=== PATIENT | female | born 1935 | race Caucasian/White ===

== ENCOUNTER → 2018-01-12 09:52 | Outpatient (CLI) | payer MEDICARE, SELFPAY ==
--- NOTE | 2018-01-12 09:56 | MM_ITS ---
MM Dig screening mamm BI w/CAD CAD Screening ORDERING PHYSICIAN : Lon Ferreira MD PATIENT AGE: 82 years GENDER: Female COMPARISON: Previous mammograms: December 2016, December 2015, 2014. INDICATION: Routine screening. No hormones. No new complaints. Family history. Maternal aunt with breast cancer age 50s TECHNIQUE: Standard CC and MLO images were obtained. R2 CAD reviewed. FINDINGS: Moderate density breast bilaterally with no dominant mass or suspicious calcifications either breast . No new areas of concern. Stable vascular calcifications. Bilateral follow-up one year recommended. . IMPRESSION: Stable bilateral mammogram.. No new areas of concern BI-RADS Category: 1 Negative RECOMMENDED FOLLOW-UP: 1YR - 1 YEAR FOLLOW-UP (A letter has been sent to the patient regarding results of the study.)
== END ==
PROVIDERS: Family Provider Emergency Medicine; PCP Emergency Medicine; Visit Provider Emergency Medicine
DX: Z12.31 Encounter for screening mammogram for malignant neoplasm of breast (principal)
CPT/HCPCS: 77067

== ENCOUNTER → 2018-12-01 18:14 | Outpatient (CLI) | payer MEDICARE, SELFPAY | PROVIDERS: Visit Provider Nurse Practitioner Family | DX: R35.0 Frequency of micturition (principal) | CPT/HCPCS: 87086 ==

== ENCOUNTER → 2018-12-09 13:49 | Outpatient (CLI) | payer MEDICARE, SELFPAY ==
--- NOTE | 2018-12-09 13:52 | US_ITS ---
US urinary bladder CLINICAL INDICATION: ITS.REASON: urinary frequency ORDERING PHYSICIAN: Ara Wilson PATIENT AGE: 83 years Comparison: None FINDINGS: Urinary bladder has an unremarkable appearance. Bilateral ureteral jets are noted. Full bladder volume is 188 mL. Post void volume is approximate 6 mL's. No obvious mass evident IMPRESSION: 1. The full urinary bladder volume is somewhat lower than expected at 188 mL with normal expected to be between 300 and 400 mL. There is only minimal amount of posterior residual urine 2. No bladder mass evident.
== END ==
PROVIDERS: PCP Nurse Practitioner Family; Visit Provider Nurse Practitioner Family
DX: R35.0 Frequency of micturition (principal)
CPT/HCPCS: 76857

== ENCOUNTER → 2019-01-13 10:53 | Outpatient (CLI) | payer MEDICARE, SELFPAY ==
--- NOTE | 2019-01-13 10:55 | MM_ITS ---
MM Dig screening mamm BI w/CAD CAD Screening COMPARISON: Digital mammograms with CAD 01/12/2018 and 01/09/2017 INDICATION: There is a history of breast cancer patient maternal aunt diagnosed at age 50. TECHNIQUE: Standard CC and MLO images were obtained. R2 CAD reviewed. FINDINGS: Mild to moderate scattered fibroglandular densities are seen throughout both breasts. A small marker right breast. There is minimal arterial calcification in each breast as noted previously. There is a mole marker right breast. There is no suspicious lesion and there are no suspicious microcalcifications. IMPRESSION: Fibrofatty parenchyma with no suspicious lesion seen BI-RADS Category: 2 Benign Finding(s) RECOMMENDED FOLLOW-UP: 1YR - 1 YEAR FOLLOW-UP (A letter has been sent to the patient regarding results of the study.)
== END ==
PROVIDERS: PCP Emergency Medicine; Visit Provider Emergency Medicine
DX: Z12.31 Encounter for screening mammogram for malignant neoplasm of breast (principal)
CPT/HCPCS: 77067

== ENCOUNTER → 2020-04-18 10:55 | Outpatient (CLI) | payer MEDICARE, SELFPAY ==
--- NOTE | 2020-04-18 10:59 | MM_ITS ---
PROCEDURE: MM DIG SCREENING MAMM BI W/CAD DIGITAL BREAST TOMOSYNTHESIS INCLUDED Patient Age:84Y CLINICAL INDICATION: SCREENING no hormones, no new complaints. Family history: Maternal aunt with breast cancer COMPARISON: [facility] DIGITAL MAMM-SCREEN BILATERAL from 12/27/2010 [facility] DIGITAL MAMM-SCREEN BILATERAL from 01/03/2012 [facility] DIGITAL MAMM-SCREEN BILATERAL from 12/25/2012 [facility] DIG MAMM-SCREEN TIERNEY from 12/30/2013 [facility] DIG MAMM-SCREEN TIERNEY from 01/02/2015 [facility] DIG MAMM-SCREEN TIERNEY from 01/08/2016 [facility] DIG MAMM-SCREEN TIERNEY W/CAD from 01/09/2017 [facility] MM Dig screening mamm BI w/CAD from 01/12/2018 [facility] MM Dig screening mamm BI w/CAD from 01/13/2019 TECHNIQUE: Standard CC and MLO images were obtained. R2 CAD reviewed. Bilateral digital breast tomosynthesis included. FINDINGS: [id number] residual fibroglandular elements both breast but no dominant or suspicious mass but no suspicious calcifications but minimal vascular calcifications bilateral Right breast. Stable no new areas of concern Left breast:. No dominant or suspicious mass . A small focal asymmetric the the the the density is deep superior left breast on MLO appears small stable focus of fibroglandular tissue. Appears to been present 2015 and even 2010 MLO views thus can be followed safely. I would recommend and encourage bilateral follow-up one year for ongoing evaluation,. Even in view of patient's age IMPRESSION: .. No new areas of significant concern. . Stable mammogram with stable minor asymmetry. . Longstanding stable tiny area of focal density superior left breast Bilateral follow-up 1 year recommended and should be encouraged to further confirm stability BI-RAD Category: 2 Benign Finding(s) FOLLOW-UP: 1YR 1 Year Follow-up (A letter has been sent to the patient regarding results of the study.) Dictated by: Roberto Carlos Russell MD 04/25/2020 11:22 Electronically signed by Roberto Carlos Russell MD in [place] 04/25/2020 11:22
== END ==
PROVIDERS: PCP Emergency Medicine; Visit Provider Family Medicine
DX: Z12.31 Encounter for screening mammogram for malignant neoplasm of breast (principal)
CPT/HCPCS: 77063; 77067

== ENCOUNTER → 2021-04-19 10:16 | Outpatient (CLI) | payer MEDICARE, SELFPAY ==
--- NOTE | 2021-04-19 10:17 | MM_ITS ---
PROCEDURE INFORMATION: Exam: MG Screening 3D Mammography Exam date and time: 04/19/2021 10:17 AM Age: 85 years old Clinical indication: Encounter for screening mammogram for malignant neoplasm of breast. Family history of breast carcinoma TECHNIQUE: Imaging protocol: Screening tomosynthesis and 2D mammography including computer-aided detection (CAD) when performed. COMPARISON: 1. MG MM DIG SCREENING MAMM BI W/CAD 04/18/2020 11:14 AM 2. MG [facility] MM Dig screening mamm BI w/CAD 01/13/2019 11:10 AM 3. MG [facility] MM Dig screening mamm BI w/CAD 01/12/2018 10:17 AM FINDINGS: MAMMOGRAPHY: Breast composition: The breasts are heterogeneously dense, which may obscure small masses. Mass: No new suspicious masses. Architectural distortion: No suspicious distortion. Calcifications: No suspicious calcifications. Asymmetric density: None. Skin thickening: None. Axillary adenopathy: None. IMPRESSION: No mammographic evidence of malignancy. Annual screening is recommended unless otherwise clinically indicated. ASSESSMENT: BI-RADS Category 1: Negative
== END ==
PROVIDERS: PCP Emergency Medicine; Visit Provider Emergency Medicine
DX: Z12.31 Encounter for screening mammogram for malignant neoplasm of breast (principal)
CPT/HCPCS: 77063; 77067

== ENCOUNTER → 2021-04-25 09:13 | Outpatient (CLI) | payer MEDICARE, SELFPAY ==
[2021-04-25 10:23] LABS: Chloride 100 mmol/L (98-107); Sodium 135 mmol/L (136-145)
[2021-04-25 10:24] LABS: Potassium 4.7 mmoL/L (3.5-5.1)
[2021-04-25 10:26] LABS: Alanine Aminotransferase 20 U/L (12-78); Albumin Level 4.5 g/dl (3.5-5.0); Albumin/Globulin Ratio 1.8 (1.1-1.8); Alkaline Phosphatase 91 U/L (38-126); Anion Gap 13.7 mEq/L (5-15); Aspartate Amino Transferase 30 U/L (14-36); Bilirubin,Total 0.7 mg/dl (0.2-1.3); Blood Urea Nitrogen 14 mg/dl (7-17); Carbon Dioxide 26 mmol/L (22.0-30.0); Cholesterol 210 mg/dl (140-200); Estimated Glomerular Filt Rate 95 ml/min (>60); GFR (African American) 115 ML/MIN (>60); Globulin 2.5 g/dL (1.3-3.2); Triglycerides 64 mg/dl (30-150); VLDL Cholesterol 13 mg/dL (0-40)
[2021-04-25 10:27] LABS: Calcium 9.6 mg/dl (8.4-10.2); Chol/HDL Ratio 2.8 (1-3.5); Glucose 96 mg/dl (74-100); HDL Cholesterol 74 mg/dl (40-60)
[2021-04-25 10:37] LABS: Direct LDL Cholesterol 111.48 mg/dL (100-129)
[2021-04-25 10:56] LABS: Thyroid Stimulating Hormone 3.52 uIU/mL (0.465-4.68)
== END ==
PROVIDERS: Visit Provider Family Medicine
DX: E78.00 Pure hypercholesterolemia, unspecified (principal)
CPT/HCPCS: 36415; 80053; 80061; 84443

== ENCOUNTER → 2022-05-08 10:17 | Outpatient (CLI) | payer MEDICARE, SELFPAY ==
--- NOTE | 2022-05-08 10:21 | MM_ITS ---
PROCEDURE INFORMATION: Exam: MG Bilateral Screening 3D Mammography Exam date and time: 05/08/2022 10:14 AM Age: 86 years old Clinical indication: Screening examination TECHNIQUE: Imaging protocol: Bilateral Screening tomosynthesis and 2D mammography including computer-aided detection (CAD) when performed. COMPARISON: 1. MG MM DIG SCREENING MAMM BI W/CAD 04/19/2021 10:26 AM 2. MG MM DIG SCREENING MAMM BI W/CAD 04/18/2020 11:14 AM FINDINGS: MAMMOGRAPHY: Breast composition: There are scattered areas of fibroglandular density. Mass: None. Architectural distortion: None. Calcifications: No suspicious calcifications. Asymmetric density: None. Skin thickening: None. Axillary adenopathy: None. IMPRESSION: No mammographic evidence of malignancy. Annual screening is recommended unless otherwise clinically indicated. ASSESSMENT: BI-RADS Category 1: Negative
== END ==
PROVIDERS: PCP Emergency Medicine; Visit Provider Family Medicine
DX: Z12.31 Encounter for screening mammogram for malignant neoplasm of breast (principal)
CPT/HCPCS: 77063; 77067

== ENCOUNTER → 2023-02-27 15:51 | Outpatient (CLI) | payer MEDICARE, SELFPAY ==
--- NOTE | 2023-02-27 16:04 | XR_ITS ---
FINAL REPORT CLINICAL HISTORY: RT KNEE PAIN FINDINGS: Right knee Three views were obtained. There is no acute fracture or dislocation. There is chondrocalcinosis at the medial and lateral compartment joint spaces. There is mild narrowing of the medial compartment joint space. Tiny osteophytes are seen along the undersurface of the patella. IMPRESSION: Changes of osteoarthritis as detailed above.. Reviewed, Interpreted and Dictated by Alec Coffman MD Transcribed by Dilcia Graham Authenticated and [facility]
== END ==
PROVIDERS: PCP Family Medicine; Visit Provider Family Medicine
DX: M25.561 Pain in right knee (principal)
CPT/HCPCS: 73562

== ENCOUNTER 2023-04-03 13:22 | Outpatient (RCR) | payer MEDICARE, SELFPAY ==
--- NOTE | 2023-04-03 14:14 | HMH.PTOPEV ---
PT Outpatient Evaluation Rehab PT Outpatient Evaluation Start: 04/03/23 14:05 Freq: Status: Active Protocol: Document 04/03/23 14:07 RUTH (Rec: 04/03/23 14:14 RUTH [id number]) E-signed By Surendra Hannah, PT Outpatient Therapy Subjective History Subjective History Pt reports insidious onset right knee pain beginning around the first of February 2023. Pt reports medial aspect/joint line locailzed right knee pain, which limited activity level until 'steroid shot' ~2 weeks ago. Pt reports 90-95% improvement in right knee pain and function since injection. Chief Complaint Pain,Stiff,Swelling,Weakness Symptom Type Ache,Dull Symptoms Relieved By Rest/Positioning Symptoms Aggravated By Standing,Physical Activity, Walking Prior Functional Limitations None Current Functional Limitations Housework,Walking,Stairs Symptom Description Intermittent Level of pain today (0-10) 0 Pain scale - at its best (0-10) 0 Pain scale - at its worst (0-10) 2 Hip/Knee Eval Gait Observation General Gait Pattern Observation No Deviations/Normal Assistive Device Assistive Devices None / NA Palpation Tenderness right Knee Palpation Finding Tenderness Knee Palpation Overall Comment 0-1/4 medial jt line MMT Hip Flexion Strength Grade 4 Good Hip Abduction Strength Grade 4- Good- Hip Adduction Strength Grade 5 Normal Hip Extension Strength Grade 4 Good Hip External Rotation Strength Grade 4 Good Hip Internal Rotation Strength Grade 4 Good Knee Extension Strength Grade 5 Normal Knee Flexion Strength Grade 4 Good ROM Knee Flexion Active Range of Motion ( 0-130 degrees) Effusion joint effusion knee exam standard right Mid - Patellar Circumerential Measure ( 36 cm) Outpatient Therapy Assessment Impairments Problems/Impairmments Palpation Tenderness,Impaired Strength,Impaired Gait Pattern ,Impaired Walking,Impaired Standing,Impaired Household Care,Impaired Stair Climbing, Subjective C/O Pain,Impaired Self Care/Self Management Prognosis Rehab Potential Good Clinical Impression Consistent with Diagnosis Yes Short Term Goals Number of Weeks 3-5wks Decreased Palpation Tenderness Yes: WFL R KNEE I
== END 2023-04-03 13:25 | disposition home or self-care (01) ==
LOC: PT 13:22
PROVIDERS: PCP Family Medicine; Visit Provider Orthopaedic Surgery
DX: M25.561 Pain in right knee (principal)
CPT/HCPCS: 97163

== ENCOUNTER → 2023-05-09 11:00 | Outpatient (CLI) | payer MEDICARE, SELFPAY ==
--- NOTE | 2023-05-09 11:04 | MM_ITS ---
PROCEDURE INFORMATION: Exam: MG Bilateral Screening 3D Mammography Exam date and time: 05/09/2023 11:01 AM Age: 87 years old Clinical indication: Screening examination; Family history of breast cancer in aunt TECHNIQUE: Imaging protocol: Bilateral Screening tomosynthesis and 2D mammography including computer-aided detection (CAD) when performed. COMPARISON: 1. MG MM DIG SCREENING MAMM BI W/CAD 05/08/2022 10:14 AM 2. MG MM DIG SCREENING MAMM BI W/CAD 04/19/2021 10:26 AM FINDINGS: MAMMOGRAPHY: Breast composition: There are scattered areas of fibroglandular density. Mass: None. Architectural distortion: None. Calcifications: No suspicious calcifications. Asymmetric density: None. Skin thickening: None. Axillary adenopathy: None. IMPRESSION: No mammographic evidence of malignancy. Annual screening is recommended unless otherwise clinically indicated. ASSESSMENT: BI-RADS Category 1: Negative
== END ==
PROVIDERS: PCP Family Medicine; Visit Provider Family Medicine
DX: Z12.31 Encounter for screening mammogram for malignant neoplasm of breast (principal)
CPT/HCPCS: 77063; 77067

== ENCOUNTER → 2023-06-27 10:07 | Outpatient (CLI) | payer MEDICARE, SELFPAY ==
--- NOTE | 2023-06-27 10:09 | CA_ITS ---
APPROVED REPORT EXAM: Comprehensive 2D, Doppler, and color-flow Echocardiogram Geospatial Scientist: Dahlia Henderson RVT Ht: 5 ft 3 in Wt: 124lbs BSA: 1.58 BP: 155/84 mmHg Indications: MURMUR 2D Dimensions LVOT 1.98 cm (M/F) 1.5-2.5 LA Volume 60.60 mL LA Volume Index 38.35 mL/m2 (M/F) 16-34 M-Mode Dimensions RVDd 2.04 cm (0.9-2.6) LA Diam 4.52 cm (1.9-4.0) LVDd 5.04 cm (3.5-5.7) Ao Diam 2.70 cm (2.0-3.7) LVDs 3.35 cm (3.5-5.7) IVSd 0.31 cm (0.6-1.1) PWd 0.38 cm (0.6-1.1) EF (Teich) 62.00% FS 33.50% EDV (Teich) 120.50 mL TAPSE 2.99 (<1.7) ESV (Teich) 45.80 mL LV Diastology E Decel Time 163.00 (160-240 msec) E/A Ratio 0.9 MED E' 5.60 (< 7 cm/sec) E'/MED E' Ratio 17.41 (>14) LAT E' 7.50 (<10 cm/sec) E/LAT E' Ratio 13.00 (>14) Aortic Valve AI PHT 1366.00 ms AO Peak GR. 9.40 mmHg Mitral Valve MV E Max John. 98.00 (40-130 cm/s) MV A Velocity 105.00 (40-130 cm/s) E/A Ratio 0.93 MV Decel. Time 163.00 (160-240 ms) MV PHT 48.00 ms Pulmonary Valve PV Peak Velocity 83.00 (50-150 cm/s) Tricuspid Valve TR P. Velocity 269.00 cm/s RAP Estimate 10.00 mmHg RVSP 38.90 mmHg Left Ventricle The left ventricle is normal size. The left ventricular systolic function is normal. The left ventricular ejection fraction is within the normal range. Proximal septal thickening is present. There is no evidence of LVOT obstruction at rest. There is normal LV segmental wall motion. There is grade II diastolic dysfunction. LVEF is 50-55%. Right Ventricle Right ventricle is mildly dilated. The right ventricular systolic function is normal. Atria Left atrium is moderately dilated. Right atrium is moderately dilated. There is no Doppler evidence of interatrial shunt. Aortic Valve The aortic valve is mildly thickened There is no aortic valvular stenosis. Mild aortic regurgitation. Mitral Valve There is mild prolapse of the posterior MV leaflet. No evidence of mitral valve stenosis. Mild mitral regurgitation. The MR jet is anteriorly directed. Tricuspid Valve The tricuspid valve leaflets are thin and pliable. Mild tricuspid regurgitation. RVSP is 30-35 mmHg. Pulmonic Valve The pulmonary valve is normal in structure. Trace pulmonic regurgitation. Great Vessels The aortic root is normal in size. The ascending aorta is not well visualized. The IVC is dilated and collapses < 50% with respirophasic variation. Pericardium There is no pericardial effusion. Other Information Study Quality: Adequate Conclusion Normal LV size with normal LV systolic function. Mild RV dilation Biatrial enlargement Mild posterior MV leaflet prolapse with mild MR Mild AI Mild TR RVSP is 30-35 mmHg. Electronically signed by : Lizzy Rosa, 06/30/2023 15:32:09
== END ==
PROVIDERS: PCP Family Medicine; Visit Provider Family Medicine
DX: R01.1 Cardiac murmur, unspecified (principal)
CPT/HCPCS: 93306

== ENCOUNTER 2023-07-17 14:00 | Outpatient (RCR) | payer MEDICARE, SELFPAY ==
--- NOTE | 2023-06-18 15:57 | HMH.PTOPWND ---
Rehab Outpt Wound Evaluation Rehab OP Wound Evaluation Start: 06/18/23 15:44 Freq: Status: Active Protocol: Document 06/18/23 15:44 TRANG (Rec: 06/18/23 15:57 PHOSILVINA [id number]) E-signed By Craig Ramos, PT Subjective/History History History This is the initial PT eval for Virginia Amos, 87 yowf who presents with c/o B LE edema, worse on the R side, x ~ 3 mos. She reports she was recently diagnosed with arthritis in her R knee and had more difficulty walking than normal due to pain. She has less pain now after gel injection in the R knee, but has not increased her ambulation distance much out of fear to return to her previously painful state. She reports mild edema in B LE for several years due to varicose veins. She reports no significant PMH other than the OA. Subjective Subjective Currently pain is 0/10, at worst 7/10 in the R knee. 1+ pitting edema noted to B lower legs at this time. No erythema noted, but mild dryness of the skin is present . 0/4 TTP noted to B lower legs this date. 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 Pain Scale Pain Scale (0-10) 7 Affected Extremities Areas Affected by Lymphedema/Edema Right Lower Extremity,Left Lower Extremity Manual Lymphatic Drainage Treatment Area MLD Treatment Area Right Lower Extremity,Left Lower Extremity Wound Problems/Impairments Impairments Problems/Impairmments Impaired Endurance,Impaired Walking,Impaired Stair Climbing,Impaired Incline Stepping,Impaired Stepping on Uneven Surface,Impaired Recreational Activities, Increased Edema,Lymphedema Present,Subjective C/O Pain, Impaired Self Care/Self Management Prognosis Rehab Potential Good Clinical Impression Consistent with Diagnosis Yes Short Term Goals Number of Weeks 2 Increase Ability to Walk Yes: > 15 min without inc edema Decrease Edema Yes: no pitting edema Decrease Subjective C/O Pain Yes: 5/10 R knee Patient to Understand Lymphedema Yes Treatment and Exercises Decrease Girth Measurments by (cm) Yes: B LE total by 5 cm ea Ged Tutor Goals Number of Weeks 4 Increase Ability to Walk Yes: > 30 min without inc edema Decrease Lymphedema Yes: No fibrotic edema Decrease Subjective C/O Pain Yes: 01/03 R knee Patient to be Ind w/ HEP Yes Patient to be Ind w/ [place] Yes Compression Garments Patient to Adhere Lymphedema Precautions Yes Decrease Girth Measurments by (cm) Yes: B LE total by 15 cm ea Outpatient Therapy Plan of Care Treatment Plan May Include Therapeutic Exercise Including Home Yes Exercise Program Manual Therapy Techniques Yes Neuromuscular Re-education Yes Therapeutic Activities to Return to Yes Previous Functional/Work Level ADL/Self Care Education Yes Orthotics/Bracing/Splinting Yes Manual Lymphatic Drainage Yes Eval/Re-Eval Yes Frequency Times per week 2 Duration Number of Weeks 4 Addendums This patient is a candidate for social No or vocational rehab? Patient/Guardian verbally acknowledges Yes understanding of treatment program and consents to further treatment? Patient/Guardian verbally acknowledges Yes understanding of diagnosis, prognosis and goals for treatment? G -code Required No Eval Complexity PT Charges 86672 - High Complexity PHYSICIAN CERTIFICATION: I certify the specified therapy services for Virginia Amos are required, authorized, and reviewed every 30 days.
== END 2023-07-17 15:10 | disposition home or self-care (01) ==
LOC: PT 14:00
PROVIDERS: PCP Family Medicine; Visit Provider Orthopaedic Surgery
DX: I89.0 Lymphedema, not elsewhere classified (principal)
CPT/HCPCS: 97140; 97163

== ENCOUNTER 2024-05-11 10:53 | Outpatient (CLI) | payer MEDICARE, SELFPAY ==
--- NOTE | 2024-05-11 10:56 | MM_ITS ---
PROCEDURE INFORMATION: Exam: MG Bilateral Screening 3D Mammography Exam date and time: 05/11/2024 10:42 AM Age: 88 years old Clinical indication: Screening examination TECHNIQUE: Imaging protocol: Bilateral Screening tomosynthesis and 2D mammography including computer-aided detection (CAD) when performed. COMPARISON: 1. MG MM DIG SCREENING MAMM BI W/CAD 05/09/2023 11:01 AM 2. MG MM DIG SCREENING MAMM BI W/CAD 05/08/2022 10:14 AM 3. MG MM DIG SCREENING MAMM BI W/CAD 04/19/2021 10:26 AM 4. MG MM DIG SCREENING MAMM BI W/CAD 04/18/2020 11:14 AM FINDINGS: MAMMOGRAPHY: Breast composition: There are scattered areas of fibroglandular density. Mass: None. Architectural distortion: No new or suspicious architectural distortion. Calcifications: No new or suspicious calcifications are present Asymmetric density: No new or suspicious asymmetric density is present Skin thickening: None. Axillary adenopathy: None. IMPRESSION: No mammographic evidence of malignancy. Recommend annual screening mammography unless otherwise clinically indicated. ASSESSMENT: BI-RADS category 1: Negative.
== END 2024-05-11 23:59 | disposition home or self-care (01) ==
LOC: RAD 10:53
PROVIDERS: PCP Family Medicine; Visit Provider Family Medicine
DX: Z12.31 Encounter for screening mammogram for malignant neoplasm of breast (principal)
CPT/HCPCS: 77063; 77067

== ENCOUNTER 2025-04-21 12:07 | Outpatient (CLI) | payer MEDICARE, SELFPAY ==
--- OUTSIDE RECORDS SUMMARY | 2025-04-21 12:09 | XMS_ITS | Clinical Summary ---
Author Organization Healthcare Address [address] [place] [address] Care Team Providers Care Stadium Manager Name Role Phone Seth Dawn MD Primary Care Provider + [phone] Social History Tobacco Use Types Packs/Day Years Used Date Smoking Tobacco: Never Assessed Comments Unknown Sex and Gender Information Value Date Recorded Sex Assigned at Not on file Legal Sex Female 6:55 PM EDT Gender Identity Not on file Sexual Orientation Not on file Plan of Treatment Upcoming Encounters Date Type Department Care Team ([facility] st Contact Info) Description 07/14/2025 11:00 AM EDT Ovarian Cancer Screening [facility] Gynecology [address] [place] [phone] Health Maintenance Due Date Last Done Comments [facility]-Bone Density Scan 1935 [facility]-Depression Screening 1935 [facility]-Medicare Annual Wellness (AWV) 1935 [facility]-Infant/Child/Adol SDOH Screenings 1935 [facility]- SDOH Screenings 1953 [facility]-Adult SDOH Screenings 1953 [facility]-Pneumococcal Vaccine: 50+ Years (1 of 1 - PCV) 1985 [facility]-Zoster Vaccines (1 of 2) 1985 [facility]-DTaP,Tdap,and Td Vaccines (1 - Tdap) 12/30/1996 12/29/1996 [facility]-RSV Vaccine: 60+ Years or (1 - 1-dose 75+ series) 2010 [id number] Vaccine (1 - season) 2024 [facility]-Influenza Vaccine (Season Ended) 2025 08/10/2019, 08/22/2017, 08/21/2017 HPV Vaccines Aged Out No longer eligi ble based on patient's age to complete this topic [facility]-HIB Vaccines Aged Out No longer e ligible based on patient's age to complete this topic [facility]-Hepatitis A Vaccines Aged Out No longer eligible based on patient's age to complete this topic [facility]-IPV Vaccines Aged Out No longer e ligible based on patient's age to complete this topic [facility]-Rotavirus Vaccines Aged Out No lo nger eligible based on patient's age to complete this topic Insurance [address] [facility] [facility] Care Teams Stadium Manager Relationship Specialty Start Date End Date Seth Dawn MD [address] [facility] [address] [place] [id number] PCP - General 07/04/21
[2025-04-21 12:10] LABS: Adenovirus F 40/41, stool Not Detected (NotDetected); Astrovirus Not Detected (NotDetected); Campylobacter Not Detected (NotDetected); Clostridium Difficile A/B, PCR Not Detected (NotDetected); Cryptosporidium Not Detected (NotDetected); Cyclospora Cayetanesis Not Detected (NotDetected); Entamoeba histolytica Not Detected (NotDetected); Enteroaggregative E coli Not Detected (NotDetected); Enteropathogenic E coli Not Detected (NotDetected); Enterotoxigenic E coli Not Detected (NotDetected); Giardia lamblia Not Detected (NotDetected); Plesimonas Shigalloides, PCR Not Detected (NotDetected); Rotavirus A Not Detected (NotDetected); Salmonella, PCR Not Detected (NotDetected); Sapovirus Not Detected (NotDetected); Shiga-like toxin E coli Not Detected (NotDetected); Shigella Enterovasive E coli Not Detected (NotDetected); Vibrio Cholerae Not Detected (NotDetected); Vibrio, PCR Not Detected (NotDetected); Yersinia Entercolitica, PCR Not Detected (NotDetected)
[2025-04-21 15:01] LABS: Norovirus Detected (NotDetected)
[2025-04-25 22:08] LABS: Pancreatic Elastase, Fecal 691 (>200)
== END 2025-04-21 23:59 | disposition home or self-care (01) ==
PROVIDERS: PCP Family Medicine; Visit Provider Nurse Practitioner Family
DX: R19.7 Diarrhea, unspecified (principal)
CPT/HCPCS: 82656; 87506

== ENCOUNTER 2025-06-11 10:52 | Emergency (ER) | payer MEDICARE, SELFPAY ==
[2025-06-11] VITALS (10 sets, daily range): BP systolic 136–186; BP diastolic 62–96; PULSE 63–92; RESP 11–18; TEMP 36.6–36.8; O2SAT 80–99; BMI 19.8
--- OUTSIDE RECORDS SUMMARY | 2025-06-11 11:03 | XMS_ITS ---
Author Organization Unknown TREATMENT PLAN [facility] Start Date Provider Encounter for Check-up [id number] [facility]
--- OUTSIDE RECORDS SUMMARY | 2025-06-11 11:03 | XMS_ITS | Clinical Summary ---
Author Organization Healthcare Address [address] [place] [address] Care Team Providers Care Manager Of It Name Role Phone Seth Dawn MD Primary Care Provider + [phone] Social History Tobacco Use Types Packs/Day Years Used Date Smoking Tobacco: Never Assessed Comments Unknown Sex and Gender Information Value Date Recorded Sex Assigned at Not on file Legal Sex Female 6:55 PM EDT Gender Identity Not on file Sexual Orientation Not on file Plan of Treatment Upcoming Encounters Date Type Department Care Team ([facility] st Contact Info) Description 07/14/2025 11:00 AM EDT Ovarian Cancer Screening [facility] Gynecology [address] [place] [address] Health Maintenance Due Date Last Done Comments [facility]-Bone Density Scan 1935 [facility]-Depression Screening 1935 [facility]-Medicare Annual Wellness (AWV) 1935 [facility]-/Child/Adol SDOH Screenings 1935 [facility]- SDOH Screenings 1953 [facility]-Adult SDOH Screenings 1953 [facility]-Pneumococcal Vaccine: 50+ Years (1 of 1 - PCV) 1985 [facility]-Zoster Vaccines (1 of 2) 1985 [facility]-DTaP,Tdap,and Td Vaccines (1 - Tdap) 12/30/1996 12/29/1996 [facility]-RSV Vaccine: 60+ Years or (1 - 1-dose 75+ series) 2010 [facility]-[id number]-65 Vaccine (1 - 2023- season) 2024 [facility]-Influenza Vaccine (#1) 06/27/202508/10, 08/22/2017, 08/21/2017 HPV Vaccines Aged Out No [...] age to complete this topic Insurance [address] [employer] [facility]31 Care Teams Manager Of It Relationship Specialty Start Date End Date Seth Dawn MD [address] [facility] [address] [place] [phone] PCP - General 07/04/21
--- NOTE | 2025-06-11 11:12 | ECG_ITS ---
APPROVED REPORT Exam: Resting ECG HR:69 bpm ECG Measurements Heart Rate 69 AXES IN 198 P 104 QRSd 112 QRS -80 QT 417 T 76 QTc 436 Conclusion NSR Left [place] Normal intervals No STEMI Electronically signed by : Tanner Phillip, 06/11/2025 15:45:34
--- NOTE | 2025-06-11 11:25 | CT_ITS ---
PROCEDURE INFORMATION: Exam: CT Abdomen And Pelvis With Contrast Exam date and time: 06/11/2025 12:04 PM Age: 89 years old Clinical indication: Abdominal pain; Localized; Right; Additional info: Right sided abdominal pain TECHNIQUE: Imaging protocol: Computed tomography of the abdomen and pelvis with contrast. Radiation optimization: All CT scans at this facility use at least one of these dose optimization techniques: automated exposure control; mA and/or kV adjustment per patient size (includes targeted exams where dose is matched to clinical indication); or iterative reconstruction. Contrast material: ISOVUE; Contrast volume: 75 ml; Contrast route: IV; COMPARISON: US - BLADDER US urinary bladder 12/09/2018 2:17 PM FINDINGS: Lungs: Mild bibasilar subsegmental atelectasis. Calcified granuloma right lung base. Cardiomegaly. Mild interlobular and intra lobular septal thickening. Liver: Mild periportal edema. No evidence of hepatic cirrhosis. No focal lesion. Gallbladder and biliary ducts: Normal. No calcified stones. No ductal dilation. Pancreas: Normal. No ductal dilation. Spleen: Normal. No splenomegaly. Adrenal glands: Normal. No mass. Kidneys and ureters: Moderate right hydronephrosis and proximal hydroureter secondary to obstructive 5 mm calculus in the mid right ureter. Right kidney is mildly hypoenhancing. No additional renal or ureteral calculi bilaterally. No left-sided obstruction. Stomach and bowel: No bowel obstruction or acute inflammation. Appendix: Appendix is normal. Intraperitoneal space: Unremarkable. No free air. No significant fluid collection. Vasculature: Unremarkable. No abdominal aortic aneurysm. Lymph nodes: Unremarkable. No enlarged lymph nodes. Urinary bladder: Unremarkable as visualized. Reproductive: Left ovarian cyst measuring 2.0 x 2.3 cm axial. No worrisome features. Nonspecific. Many postmenopausal homogeneous cysts are benign. Bones/joints: Moderate to severe degenerative change in the lumbar spine, with grade 1 anterolisthesis at L3-L4 and L4-L5. Chondroid lesion (suspect enchondroma) in the intertrochanteric proximal left femur. Soft tissues: Mild anasarca. No acute soft tissue abnormality. IMPRESSION: 1. Moderate right hydronephrosis and proximal hydroureter secondary to obstructive 5 mm calculus in the mid right ureter. 2. No bowel obstruction or acute inflammation. Findings suggestive of volume overload including mild interstitial pulmonary edema. Trace periportal edema, mild anasarca.
[2025-06-11 11:35] LABS: Hematocrit 39.7 % (37.0-47.0); Hemoglobin 13.1 g/dL (12.2-16.2); Immature Granulocytes % 0.3 %; Mean Corpuscular HGB Conc 33.0 g/dL (31.8-35.4); Mean Corpuscular Hemoglobin 31.3 pg (27.0-31.2); Mean Corpuscular Volume 95.0 fl (81-99); Nucleated Red Blood Cells % 0 %; Platelet Count 491 K/mm3 (142-424); Red Blood Count 4.18 M/mm3 (4.20-5.40); Red Cell Distribution Width-SD 47.8 fL; White Blood Count 9.7 K/mm3 (4.8-10.8)
[2025-06-11] MEDS: ONDANSETRON 4MG/2ML VIAL 4 MG IV (11:36)
[2025-06-11 11:38] LABS: Albumin Level 4.2 g/dl (3.5-5.0); Chloride 104 mmol/L (98-107); Potassium 4.1 mmoL/L (3.5-5.1); Sodium 137 mmol/L (136-145)
[2025-06-11 11:40] LABS: Alanine Aminotransferase 23 U/L (12-78); Aspartate Amino Transferase 37 U/L (14-36); Blood Urea Nitrogen 20 mg/dl (7-17); Creatinine Clearance Estimated 31 mL/min (50-200); Creatinine,Serum 0.70 mg/dl (0.52-1.04); Estimated Glomerular Filt Rate 79 ml/min (>60); GFR (African American) 95 ML/MIN (>60)
[2025-06-11 11:41] LABS: Albumin/Globulin Ratio 1.5 (1.1-1.8); Alkaline Phosphatase 141 U/L (38-126); Anion Gap 8.1 mEq/L (5-15); Bilirubin,Total 0.7 mg/dl (0.2-1.3); Calcium 9.7 mg/dl (8.4-10.2); Carbon Dioxide 29 mmol/L (22.0-30.0); Globulin 2.8 g/dL (1.3-3.2); Glucose 130 mg/dl (74-100); Lipase 74 U/L (23-300); Total Protein,Serum 7.0 g/dl (6.3-8.2)
[2025-06-11 11:47] LABS: Microscopic, Urine URINE MICROSCOPIC (MICROSCOPIC)
[2025-06-11 11:49] LABS: Bilirubin,Urine Negative (Negative); Color,Urine YELLOW (Yellow); Glucose,Urine (UA) Negative (Negative); Ketones,Urine TRACE (Negative); Leukocyte Esterase,Urine Negative (Negative); PH,Urine 6.0 (5.0-8.5); Protein,Urine 1+ (Negative); Specific Gravity, Urine 1.025 (1.005-1.030); Urobilinogen,Urine 0.2 EU/dl (0.2)
[2025-06-11 11:53] LABS: Troponin I < 0.01 ng/ml (0.00-0.034)
[2025-06-11 11:56] LABS: Bacteria,Urine Trace /lpf; Hyaline Casts,Urine OCC #/lpf (0); RBC,Urine 20-50 #/hpf (0-3); Squamous Epithelial Cell,Urine Occasional #/hpf (0-5)
[2025-06-11] MEDS: IOPAMIDOL-370 (76%);100ML BOTTLE 75 ML IV (12:07)
[2025-06-11] MEDS: SODIUM CHLORIDE 0.9% 10ML SYR (RAD ONLY) 10 ML IV (12:07)
[2025-06-11] MEDS: KETOROLAC 30MG/ML VIAL 15 MG IV (12:38)
[2025-06-11] MEDS: ACETAMINOPHEN 500MG TAB 500 MG PO (12:38)
--- NOTE | 2025-06-11 13:03 | HMH.EDGENADL ---
Discharge Plan Disposition Patient Disposition: Home, Self-Care Condition: Good Prescriptions Prescriptions: New ketorolac 10 mg tablet 10 mg PO Q8H 5 Days Qty: 15 0RF tamsulosin 0.4 mg capsule 0.4 mg PO Q24H MDD 0.4 Qty: 14 0RF Rx Instructions: Take daily until passage of the stone No Action cranberry fruit 400 mg capsule 400 mg PO DAILY cholecalciferol (vitamin D3) 1,000 unit capsule 1,000 unit PO DAILY Metamucil 3.4 gram/5.4 gram powder 1 tbsp PO DAILY Rx Instructions: mix into at least 8 oz of water or juice before administering Referrals Follow up/Referrals: Seth Dawn MD [Primary Care Provider, Medical] - See instructions Activity Restrictions/Add. Instructions Additional Instructions/Restrictions: Your CT scan showed a kidney stone. I want you take tamsulosin 0.4 mg once daily until the stone passes. I also want you to take Ketorolac for pain. You may add Tylenol to this medication at home to control pain as well. Do not take Aspirin or Motrin with it. If you develop worsening pain, fevers, or difficulty passing urine please return to the ER. Clinical Impressions Clinical Impression: Ureterolithiasis Instructions Patient Instructions: DI for Acute Abdominal Pain Print Language Print Language: Lao Discharge ED Provider: Tanner Phillip Adult HPI General Chief complaint: Abdominal Pain Stated complaint: right side abd pain Time Seen by Provider: 06/11/25 11:20 Mode of Arrival: Wheelchair Source of Information: Patient Description of Symptoms (Recalled from ER Triage Doc. by RN): severe pain in the right flank that has moved around to her r side and lower abdomen. 10/ when standing. had a BM yesterday. had norovirus 2 weeks ago. sometimes the pain goes under her r ribs. nauseous but no vomiting History of Present Illness HPI narrative: This is a 89-year-old female patient, with past medical history of lymphedema as well as kidney stones, who is presenting to the emergency department today for evaluation of right-sided abdominal pain. Patient states this pain began in her back and then migrated to her abdomen throughout the morning hours. She has not had any urinary frequency, urinary retention, dysuria, or hematuria. Her pain is not postprandial in nature, however it is associated with nausea and vomiting. She has not had any diarrhea, hematochezia, or melena. She denies fevers. She describes this pain as relatively sudden in onset Related Data Home Medications ?Medication ?Instructions ?Recorded ?Confirmed cholecalciferol (vitamin D3) 25 1,000 unit PO DAILY 01/19/19 04/19/25 mcg (1,000 unit) capsule cranberry fruit 400 mg capsule 400 mg PO DAILY 01/19/19 04/19/25 psyllium husk 3.4 gram/5.4 gram 1 tbsp PO DAILY 04/19/25 04/19/25 oral powder (Metamucil) Previous Rx's ?Medication ?Instructions ?Recorded ketorolac 10 mg tablet 10 mg PO Q8H 5 days #15 tabs 06/11/25 tamsulosin 0.4 mg capsule 0.4 mg PO Q24H Kidney stone #14 06/11/25 caps Allergies Allergy/AdvReac Type Severity Reaction Status Date / Time azithromycin (AZITHROMYCIN) Allergy Unknown Hives Verified 06/11/25 11:36 [facility] Disclaimer: The information contained in this section may have been updated after the patient was seen, as this information can be updated by other users. Social History Smoking Status: Never smoker alcohol intake: never substance use type: denies use current occupational status: retired Travel in the last 8 weeks?: None Have you lived/traveled outside US in past 30 days?: No Contact w/someone who lives/traveled outside US past 30 days?: No Exposure to someone with infectious disease in past 14 days?: No Do you have a fever (greater than 100.4 F or 38 C)?: No Have you tested positive for COVID-19?: No Exposed to someone with COVID-19 in past 14 days?: No Do you have a sore throat?: No Do you have a cough?: No Do you have any weakness?: No Do you have any diarrhea?: No Are you experiencing any unusual bleeding?: No Do you have any muscle aches/pain?: No Do you have any abdominal pain?: Yes Are you experiencing loss of taste or smell?: No Other Medical History Have you received the Pneumonia Vaccine: Yes ROS Obtained: Yes Systems reviewed as appropriate & no additional complaints except as documented Physical Exam General General appearance: other (See MDM) Respiratory Respiratory exam: Present other (See MDM) Cardiovascular Cardiovascular exam: Present other (See MDM) Neurological Exam Neurological exam: Present other (See MDM) Medical Decision Making Medical Records Medical records reviewed: Yes I reviewed the patient's medical records. Screening: Per USPSTF and CDC recommendations, given the prevalence of disease in our region, it is our hospital?s policy to screen for HIV and viral Hepatitis for all patients aged 18 and over and those with ongoing risk factors. Giuseppe Inquiry Pt receiving controlled substance: No Giuseppe was queried for this patient: No Vital Signs: 06/11/25 11:03 06/11/25 11:07 06/11/25 11:30 Temperature 98 F Temperature Source Oral Pulse Rate 75 75 Pulse Rate [Left] 92 H Respiratory Rate 18 12 Blood Pressure 186/89 H 148/85 H Blood Pressure [Right Arm] 186/89 H Blood Pressure Mean [Right Arm] 121 Blood Pressure Source Blood Pressure Position 02 Sat by Pulse Oximetry 99 97 97 Oxygen Delivery Method 06/11/25 12:08 06/11/25 12:17 06/11/25 12:30 Temperature Temperature Source Pulse Rate 78 67 66 Pulse Rate [Left] Respiratory Rate 14 11 L Blood Pressure 155/96 H 160/89 H Blood Pressure [Right Arm] Blood Pressure Mean [Right Arm] Blood Pressure Source Blood Pressure Position 02 Sat by Pulse Oximetry 80 L 96 98 Oxygen Delivery Method 06/11/25 13:00 06/11/25 13:53 06/11/25 14:00 Temperature Temperature Source Pulse Rate 64 63 63 Pulse Rate [Left] Respiratory Rate 13 13 11 L Blood Pressure 158/76 H 143/73 H 136/76 Blood Pressure [Right Arm] Blood Pressure Mean [Right Arm] Blood Pressure Source Blood Pressure Position 02 Sat by Pulse Oximetry 93 L 96 96 Oxygen Delivery Method 06/11/25 14:45 Temperature 98.2 F Temperature Source Oral Pulse Rate 64 Pulse Rate [Left] Respiratory Rate 15 Blood Pressure 147/62 H Blood Pressure [Right Arm] Blood Pressure Mean [Right Arm] Blood Pressure Source Automatic Cuff Blood Pressure Position Supine 02 Sat by Pulse Oximetry Oxygen Delivery Method Room Air Lab Data Lab Results 06/11/25 11:15: WBC 9.7, RBC 4.18 L, Hgb 13.1, Hct 39.7, MCV 95.0, MCH 31.3 H, MCHC 33.0, RDW 13.6, Plt Count 491 H, MPV 10.1, Neut % (Auto) 89.9 H, Lymph % (Auto) 6.9 L, [place] % (Auto) 2.2, Eos % (Auto) 0.2, Baso % (Auto) 0.5, Neut # (Auto) 8.8 H, Lymph # (Auto) 0.7, C[place] # (Auto) 0.2, Eos # (Auto) 0.0, Baso # (Auto) 0.1, Sodium 137, Potassium 4.1, Chloride 104, Carbon Dioxide 29, Anion Gap 8.1, BUN 20 H, Creatinine 0.70, Estimated Creat Clear 31, Estimated GFR 79, Est GFR ( Amer) 95, Glucose 130 H, Calcium 9.7, Total Bilirubin 0.7, AST 37 H, ALT 23, Alkaline Phosphatase 141 H, Troponin I < 0.01, Total Protein 7.0, Albumin 4.2, Globulin 2.8, Albumin/Globulin Ratio 1.5, Lipase 74 06/11/25 11:43: Urine Color Yellow, Urine Appearance Clear, Urine pH 6.0, Ur Specific [place] 1.025, Urine Protein 1+ A, Urine Glucose (UA) Negative, Urine Ketones Trace, Urine Blood 3+ A, Urine Nitrate Negative, Urine Bilirubin Negative, Urine Urobilinogen 0.2, Ur Leukocyte Esterase Negative, Urine RBC 20-50, Urine WBC None, Ur Squamous Epith Cells Occasional, Urine Bacteria Trace, Hyaline Casts Occ 06/11/25 11:15 06/11/25 11:15 Orders (Tests/Meds): ED MEDICATIONS Discontinued Medications Generic Name Dose Route Start Last Admin Trade Name Velia PRN Reason Stop Dose Admin Acetaminophen 500 mg 06/11/25 12:29 06/11/25 12:38 Acetaminophen 500mg Tab PO 06/11/25 12:30 500 mg ONCE ONE Administration Iopamidol 75 ml 06/11/25 12:06 06/11/25 12:07 Iopamidol-370 (76%);100ml Bottle IV 06/11/25 12:07 75 ml ONCE ONE Administration Ketorolac Tromethamine 15 mg 06/11/25 12:29 06/11/25 12:38 Ketorolac 30mg/Ml Vial IV 06/11/25 12:30 15 mg ONCE ONE Administration Morphine Sulfate 2 mg 06/11/25 11:26 06/11/25 11:37 Morphine 2mg/Ml Syringe IV 06/11/25 11:27 Not Given ONCE ONE Ondansetron HCl 4 mg 06/11/25 11:26 06/11/25 11:36 Ondansetron 4mg/2ml Vial IV 06/11/25 11:27 4 mg ONCE ONE Administration Sodium Chloride 10 ml 06/11/25 12:06 06/11/25 12:07 Sodium Chloride 0.9% 10ml Syr (Rad Only) IV 07/11/25 12:05 10 ml NEEDED PRN Administration Maintain IV Site ORDERS Category Date Time Status CT abdomen pelvis w con Stat Cat Scan 06/11/25 11:25 Completed CBC w/Auto Diff [Complete Blood Count Auto Diff] Stat Lab 06/11/25 11:15 Completed CMP [Comprehensive Metabolic Panel] Stat Lab 06/11/25 11:15 Completed Lipase Stat Lab 06/11/25 11:15 Completed Troponin I Stat Lab 06/11/25 11:15 Completed Urinalysis and Microscopic Stat Lab 06/11/25 11:43 Completed ECG Data Tracing #1: I reviewed this ECG and interpreted as documented below: EKG personally interpreted by me demonstrates normal sinus rhythm with a rate of 69 bpm, left axis, no TN prolongation, narrow QRS with incomplete right bundle branch block morphology, no QTc prolongation. No ST elevation or depression. No overt signs of ischemia or arrhythmia Medical Decision Narrative: In summary, this is an 89-year-old female patient who is relatively healthy and presenting to the emergency department today for sudden onset right-sided flank pain is radiating into the right side of her abdomen. Comorbidities include a past medical history of kidney stones as well as lymphedema. She is not on any other relevant daily medications. On initial evaluation of the patient the patient was in acute painful distress and appeared very uncomfortable. Regardless, she was hemodynamically stable and neurologically intact and saturating well on room air. On physical examination she does have tenderness along the right flank as well as in the right lower abdomen. There is no obvious rodolfo peritonitis. Mucous membranes appear moist. Heart and lungs are clear to auscultation bilaterally. Differential diagnosis to include pyelonephritis, ureterolithiasis, urinary tract infection, right-sided diverticulitis, colitis, pneumoperitoneum, among others. Her workup was initiated with hematologic labs, as well as an EKG, and a CT scan of the abdomen and pelvis with IV contrast. Labs were personally interpreted by me and demonstrates no actionable abnormalities. She does not have any evidence of leukocytosis. No evidence of anemia. No electrolyte derangements and no evidence of acute kidney injury. Her urinalysis does show 3+ blood but there is no nitrates or leukocyte esterase and she has no white blood cells present. CT scan of the abdomen and pelvis was personally turbid by me and demonstrates right sided ureterolithiasis. Official radiology read was in agreement and further characterize the stone is a 5 mm stone in the distal mid ureter, with upstream hydronephrosis. We did treat the patient's pain with IV Toradol as well as Tylenol. On repeat assessment of the patient she states that her pain had significantly improved and she was feeling much better overall. We reviewed the indications for emergent stone removal, and the patient does not currently have any of these. Her pain is controlled, she is not having intractable pain, she does not have a solitary kidney, and she has no evidence of urinary tract infection currently. She is overall pleased by her workup today and is reassured that this is a kidney stone. We will send her home with a prescription to take Toradol and tamsulosin over the course of the next week. I have given strict return precautions of the event that she does not pass the stone or the event that she develops symptoms consistent with infection or intractable pain/nausea and vomiting. At this time all questions have been answered and all parties are agreeable with the decision to discharge home Critical Care Critical Care Time Critical Care Time: No
== END 2025-06-11 14:48 | disposition home or self-care (01) ==
PROVIDERS: Emergency Provider Student in an Organized Health Care Education/Training Program; PCP Family Medicine
DX: N13.0 Hydronephrosis with ureteropelvic junction obstruction (principal); N13.4 Hydroureter; R10.31 Right lower quadrant pain
CPT/HCPCS: 74177; 80053; 81001; 83690; 84484; 85025; 93005; 96374; 96375; 99285; J1885; J2405; Q9967

== ENCOUNTER 2025-06-13 10:04 | Outpatient (CLI) | payer MEDICARE, SELFPAY ==
--- NOTE | 2025-06-13 10:04 | XR_ITS ---
FINAL REPORT CLINICAL HISTORY: right knee pain prior injection COMPARISON: 02/27/2023 FINDINGS: RIGHT KNEE: There is no acute fracture or dislocation. Moderate degenerative narrowing is present in the medial compartment. Moderate changes of chondrocalcinosis are noted. There is no soft tissue abnormality. IMPRESSION: Degenerative change, with no acute fracture Reviewed, Interpreted and Dictated by Alec Coffman MD Transcribed by Tania Gomez Authenticated and . [facility]
--- OUTSIDE RECORDS SUMMARY | 2025-06-13 10:06 | XMS_ITS | Clinical Summary ---
Author Organization Healthcare Address [address] [place] [address] Care Team Providers Care Learning Services Coordinator Name Role Phone Seth Dawn MD Primary Care Provider + [phone] Social History Tobacco Use Types Packs/Day Years Used Date Smoking Tobacco: Never Assessed Comments Unknown Sex and Gender Information Value Date Recorded Sex Assigned at Not on file Legal Sex Female 6:55 PM EDT Gender Identity Not on file Sexual Orientation Not on file Plan of Treatment Upcoming Encounters Date Type Department Care Team ([facility] st Contact Info) Description 07/14/2025 11:00 AM EDT Ovarian Cancer Screening [facility] Gynecology [address] [place] [address] Health Maintenance Due Date Last Done Comments [...] or (1 - 1-dose 75+ series) 2010 [id number] Vaccine (1 - 2023- season) 2024 UKY-Influenza [...] age to complete this topic Insurance [address] [facility] [facility] Care Teams Learning Services Coordinator Relationship Specialty Start Date End Date Seth Dawn MD [address] [facility] [address] [place] [id number] PCP - General 07/04/21
== END 2025-06-13 23:59 ==
LOC: RAD 10:04
PROVIDERS: Visit Provider Orthopaedic Surgery
DX: M17.11 Unilateral primary osteoarthritis, right knee (principal)
CPT/HCPCS: 73562

== ENCOUNTER 2025-06-21 10:14 | Outpatient (CLI) | payer MEDICARE, SELFPAY ==
--- OUTSIDE RECORDS SUMMARY | 2025-06-21 10:17 | XMS_ITS | Clinical Summary ---
Author Organization Healthcare Address [address] [place] [address] Care Team Providers Care Aircraft Engine Technician Name Role Phone Seth Danw MD Primary Care Provider + [phone] Social History Tobacco Use Types Packs/Day Years Used Date Smoking Tobacco: Never Assessed Comments Unknown Sex and Gender Information Value Date Recorded Sex Assigned at Not on file Legal Sex Female 6:55 PM EDT Gender Identity Not on file Sexual Orientation Not on file Plan of Treatment Upcoming Encounters Date Type Department Care Team ([facility] st Contact Info) Description 07/14/2025 11:00 AM EDT Ovarian Cancer Screening [facility] Gynecology [address] [place] [address] Health Maintenance Due Date Last Done Comments [...] or (1 - 1-dose 75+ series) 2010 [id number] Vaccine (1 - 2023- season) 2024 UKY-Influenza [...] age to complete this topic Insurance [address] [place] [place] [facility] Care Teams Aircraft Engine Technician Relationship Specialty Start Date End Date Seth Dawn MD [address] [facility] [address] [place] [phone] PCP - General 07/04/21
--- NOTE | 2025-06-21 10:18 | XR_ITS ---
FINAL REPORT CLINICAL HISTORY: GROSS HEMATURIA, RT URETERAL STONE COMPARISON: 06/11/2025 FINDINGS: A single supine view the abdomen was obtained. The bowel gas pattern is nonspecific but nonobstructive. The known right ureteral stone is not identified on this exam. The kidneys are obscured. Osseous structures are within normal limits. IMPRESSION: Nonspecific but nonobstructive bowel gas pattern. Reviewed, Interpreted and Dictated by Stefanie Anderson MD Transcribed by Dilcia Graham Authenticated and [facility]
== END 2025-06-21 23:59 | disposition home or self-care (01) ==
LOC: RAD 10:15
PROVIDERS: PCP Family Medicine; Visit Provider Family Medicine
DX: N20.1 Calculus of ureter (principal); R93.3 Abnormal findings on diagnostic imaging of other parts of digestive tract
CPT/HCPCS: 74018

== ENCOUNTER 2025-10-18 23:01 | Emergency (ER) | payer MEDICARE, SELFPAY ==
--- OUTSIDE RECORDS SUMMARY | 2025-05-02 09:45 | XMS_ITS ---
[facility] Address [address] [place] Campos [id number] Care Team Providers Care Community Fundraiser Name Role Phone Seth Dawn Primary Care Provider Allergies Allergen (clinical drug ingredient) Drug/Non Drug Allergy documented on EMR Reaction Allergy Type Onset Date Status azithromycin Azithromycin Unknown Drug Allergy A ctive Results Component Value Reference Range Notes Urinalysis - Inhouse Reviewed date:05/02/2025 05:03:24 PM Interpretation: Performing Lab: Notes/Report: Color/Clarity yellow/cloudy Leuk Neg Nitrite Neg Urobili 3.2 Protein Neg pH 6.5 Blood 3+ Sp. Gr. 1.010 Ketone Neg Bili Neg Gluc Neg P-Culture, Urine Reviewed date:05/09/2025 09:14:03 AM Interpretation:No growth Performing Lab: Notes/Report: Test performed by [facility] [address] [place] [address] , [address], [place] [address] Jd Benavides MD, Labor And Employment Paralegal CLIA: [id number] Specimen Source Urine - Void Culture, Urine See Below Final Report : No growth REASON FOR VISIT Possible UTI Medications Medication SIG (Take, Route, Frequency, Duration) Notes Start Date End Date Status Omeprazole 20 MG 1 cap(s) orally once a day; Duration: 90 days Active Timolol Maleate 5 MG 1 tab(s) orally 2 t imes a day; Duration: 30 day(s) Active oxyBUTYnin Chloride ER 5 MG 1 tab(s) ora lly once a day Active Diclofenac Sodium 1 % 4 grams applied topically 4 times a day 03/03/2023 Active Nitrofurantoin Monohyd Macro 100 MG 1 capsule with food Orally every 12 hrs; Duration: 5 days 05/02/2025 Active Braymer-3 1000 MG 1 cap(s) orally once a day; Duration: 30 day(s) Active Vital Signs Weight 115 lbs 05/02/2025 Blood pressure systolic 144 mm Hg 05/02/20 25 Blood pressure diastolic 80 mm Hg 025 Heart Rate 80 /min 05/02/2025 Height 64 in 05/02/2025 BMI 19.74 kg/m2 05/02/2025 Encounters Encounter Location Date Provider Diagnosis [facility] [address] [place], [place] [id number] 05/02/2025 Seth Dawn Gross hematuria R31. 0 and Body mass index [BMI] 19.9 or less, adult Z68.1 Assessments Encounter Date Diagnosis (ICD Code) Assessment Notes Treatment Notes Treatment Clinical Notes Section Notes 05/02/2025 Gross hematuria (ICD-10 - R31.0) 05/02/2025 Body mass index [BMI] 19.9 or less, adult (ICD-10 - Z68.1) 05/02/2025 Other Patient has lost 4 lbs in the past 20 months. No concern at this time. She will monitor weight and call with any new issues. Plan Of Treatment Medication Medication Name Sig Start Date Stop Date Notes Nitrofurantoin Monohyd Macro 100 MG 1 capsule with food Orally every 12 hrs; Duration: 5 days 05/02/2025 Treatment Notes Assessment Notes Other Patient has lost 4 l bs in the past 20 months. No concern at this time. She will monitor weight and call with any new issues. Progress Notes * MASHA AMOS GDOB: [birth year] (89 yo F)Acc No.[id number]:05/02/2025 Progress Notes Patient: MASHA LABOY Provider: Jayla Dawn M.D. :1935 A ge:89 Y S ex:Female Date:05/02/2025 Address:[address] [place] [id number] Subjective: * Chief Complaints: * 1 . Possible UTI. * HPI: U rology: 89 year old female presents with c/o hematuria P t complains of blood in urine that started Friday evening. Pt states it continued through today. 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 E ndocrinology: c/o Weight Loss P t complains of tremendous weight loss over the last couple months. Pt states she is not trying to lose weight and is concerned. Pt states she is losing about 1 lb per day. * ROS: D ERMATOLOGY: no R esa. n o H geronimo. G ASTROENTEROLOGY: no N ausea. n o V omiting. U ROLOGY: no D ifficulty urinating. n o B lood in urine. * Medical History: G laucoma, Overactive Bladder, Hyperlipidemia, Esophageal reflux, Migraine headache, Lumbar Disc Disease, Lumbar facet arthropathy, Spondylolisthesis. * Surgical History: T onsillectomy , Bladder Suspension , Bladder Cyst Removal , Glaucoma . * Hospitalization/Major Diagno stic Procedure: D enies Past Hospitalization. * Family History: Maternal Aunt and Uncle, Sister, and daughter have had cancer. * Social History: C URRENT TOBACCO USE: No . C affeine: yes, frequency: Pt sts she occasionally drinks caffeine. Alcohol: yes, Pt sts she drinks ocassinally. * Medications: T aking Braymer-3 1000 MG Capsule 1 cap(s) orally once a day , Taking Timolol Maleate 5 MG Tablet 1 tab(s) orally 2 times a day , Taking oxyBUTYnin Chloride ER 5 MG Tablet Extended Release 24 Hour 1 tab(s) orally once a day , Taking Diclofenac Sodium 1 % Gel 4 grams applied topically 4 times a day , Taking Omeprazole 20 MG Capsule Delayed Release 1 cap(s) orally once a day , Discontinued Cefdinir 300 MG Capsule 1 cap(s) Orally Two times a day , Medication List reviewed and reconciled with the patient * Allergies: A zithromycin. Objective: * Vitals: W t: 115, Temp: 98.0, BP: 144/80, HR: 80, Nurse: miguelina, Ht: 64, BMI:19.74. * Examination: G eneral Examination: General Appearance: N AD. H eart: R SR. L ungs:?clear to auscultation. B ack: n o CVA tenderness. Assessment: * Assessment: 1. G ross hematuria - R31.0 (Primary) 2 . B kalyn mass index [BMI] 19.9 or less, adult - Z68.1 Plan: * Treatment: Value Reference Range C ulture, Urine See Below - * S pecimen Source Urine - Void - * Gisselle Logan 05/06/2025 11:12: 59 AM EDT > LM for pt to return Gisselle Lowry 05/09/2025 09:13:53 AM EDT > Pt informed ?LAB: Urinalysis - Inhouse (Collection Date & Time - 05/02/2025)* Value Reference Range C olor/Clarity yellow/cloudy * L euk Neg * N itrite Neg * U robili 3.2 * P rotein Neg * p H 6.5 * B lood 3+ * S p. Gr. 1.010 * K etone Neg * B erendira Neg * G shi Neg * Gisselle Logan 05/02/2025 03:06:0 9 PM EDT > Provider reviewed results while patient in office. 2.?Others? Notes: Patient has lost 4 lbs in the past 20 months. No concern at this time. She will monitor weight and call with any new issues.?? * Procedure Codes: G 2211 Complex e/[place], [address] Urinalysis, no micro, 1036F TOBACCO NON-USER * Images: Billing Information: * Visit Code: 26509 Office Visit, Est Pt., Level 3. * Procedure Codes: G2211 Complex e/[place]. [address] Urinalysis, no micro. 1036F TOBACCO NON-USER. * Electronic signature of Linda Dawn MD on 10/18/2025 at 11:06 PM EST Sign off status: Pending * Provider: Jayla Dawn M.D. Date: 0 05/02/2025 Generated for Chi rosales/Anita/Raymonditting on: 1 12/19/2024 11:06 PM EST History and Physical Notes * HPI (History of Present Illness) Category Sub-Category Detail Notes Category Not es Endocrinology Weight Loss Pt complains of tremendous weight loss over the last couple months. Pt states she is not trying to lose weight and is concerned. Pt states she is losing about 1 lb per day Urology hematuria Pt complains of blood in urine that started Friday evening. Pt states it continued through today. Pt states urine gets simulation software engineer throughout the day Examination Category Sub-Category Detail Notes Category Not es General Examination Heart: RSR Lungs: clear to auscultatio n General Appearance: NAD Back: no CVA tenderness
--- OUTSIDE RECORDS SUMMARY | 2025-06-21 04:00 | XMS_ITS ---
Author [facility] Address [address] [id number] Care Team Providers Care Chemist Intern Name Role Phone López Seth Primary Care Provider [phone] Allergies Allergen (clinical drug ingredient) Drug/Non Drug Allergy documented on EMR Reaction Allergy Type Onset Date Status azithromycin Azithromycin Unknown Drug Allergy A ctive Results Component Value Reference Range Notes Urinalysis - Inhouse Reviewed date:06/21/2025 10:30:46 AM Interpretation: Performing Lab: Notes/Report: Color/Clarity Red Leuk Neg Nitrite Neg Urobili 3.2 Protein 1+ pH 6.5 Blood 3+ Sp. Gr. 1.020 Ketone Neg Bili Neg Gluc Neg CBC Venipuncture (in house) Reviewed date:06/22/2025 08:36:04 AM Interpretation: Performing Lab: Notes/Report: wbc 6.9 3.5 - 10 lymph 14.7% 15 - 50 mid 4.8% 2 - 15 gran 80.5% 35 - 80 rbc 4.20 3.5 - 5.5 hgb 13.1 11.5 - 16.5 hct 39.5 35 - 55 mcv 94.0 75 - 100 mch 31.3 25 - 35 mchc 33.3 31 - 38 platlet 486 100 - 400 P-Comprehensive Metabolic Pa devon (CMP) Reviewed date:06/22/2025 08:36:04 AM Interpretation:Normal Performing Lab: Notes/Report: CLIA: [id number] Jd Benavides MD, Border [employer] Officer [address] [place] [address] , [address], [place] [address] Test performed by [facility], [facility] Sodium 139 135-145 mmol/L Potassium 4.4 3.5-5.3 mmol/L Chloride 102 97-108 mmol/L CO2 27 20-32 mmol/L Glucose 94 65-99 mg/dL BUN 17 8-23 mg/dL Creatinine 0.89 0.50-1.00 mg/dL Calcium 9.9 8.6-10.4 mg/dL eGFR by Creatinine 62 >59 mL/min/1.73m2 Protein 6.4 6.0-8.3 g/dL Albumin 4.0 3.5-5.3 g/dL Alkaline Phosphatase 115 35-121 IU/L ALT (SGPT) 14 <5-47 IU/L AST (SGOT) 19 <5-40 IU/L Bilirubin, Total 0.5 <0.2-1.2 mg/dL A/G Ratio 1.7 1.1-2.5 P-Culture, Urine Reviewed date:06/23/2025 08:51:43 AM Interpretation:No growth Performing Lab: Notes/Report: CLIA: [id number] Jd Benavides MD, [employer] Officer [address] [place] [address] , [address], [place] [address] Test performed by [facility] Specimen Source Urine - Void Culture, Urine See Below Final Report : No growth P-Lipid Panel Reviewed date:06/22/2025 08:36:04 AM Interpretation:Normal Performing Lab: Notes/Report: Test performed by [facility] [address] [place] [address] , [address], [place] [address] Jd Benavides MD, [employer] Officer CLIA: [id number] Cholesterol 189 <200 mg/dL Triglycerides 60 <150 mg/dL HDL Cholesterol 71 >39 mg/dL Cholesterol / HDL Ratio 2.66 0.00-4.44 Ratio Non-HDL Cholesterol 118 <130 mg/dL LDL Cholesterol (Calculation) 106 <130 mg/dL LDL Cholesterol Levels* Less than 100 mg/dL Optimal 100 to 129 mg/dL Near Optimal/ Above Optimal 130 to 159 mg/dL Borderline High 160 to 189 mg/dL High 190 mg/dL and above Very High * Categories as recommended by the 2004 ATPIII guidelines LDL/HDL Ratio 1.5 <3.3 Ratio LDL Cholesterol Patient History Test Date: 06/21/2025 LDL Results: 106 Units: mg/dL % Change: - P-TSH reflex to FT4 Reviewed date:06/22/2025 08:36:04 AM Interpretation:Normal Performing Lab: Notes/Report: Test performed by [facility], [address] , [address], [place] [address] Jd Benavides MD, [employer] Officer CLIA: [id number] TSH reflex to FT4 4.46 0.43-5.25 mU/L X ray : Abdomen- KUB Reviewed date:06/22/2025 08:36:04 AM Interpretation:nonspecific, nonobstructive bowel gas pattern Performing Lab: Notes/Report: nonspecific, nonobstructive bowel gas pattern REASON FOR VISIT blood in urine Medications Medication SIG (Take, Route, Fr equency, Duration) Notes Start Date End Date Status Avastin 400 MG/16ML as directed Intravenous Active [place] Pass-3 1000 MG 1 cap(s) orally once a day; Duration: 30 day(s) Active Tamsulosin HCl 0.4 MG 1 capsule Orally O nce a day; Duration: 30 days Active Vital Signs Weight 112.8 lbs 06/21/2025 Blood pressure systolic 138 mm Hg 06/21/20 25 Blood pressure diastolic 70 mm Hg 025 Heart Rate 74 /min 06/21/2025 Height 64 in 06/21/2025 BMI 19.36 kg/m2 06/21/2025 Encounters Encounter Location Date Provider Diagnosis [facility] [address] [place] [id number] 06/21/2025 Seth [place] Gross hematuria R31. 0 ; Right ureteral stone N20.1 and Pure hypercholesterolemia E78.00 Assessments Encounter Date Diagnosis (ICD Code) Assessment Notes Treatment Notes Treatment Clinical Notes Section Notes 06/21/2025 Gross hematuria (ICD -10 - R31.0) 06/21/2025 Right ureteral stone (ICD-10 - N20.1) 06/21/2025 Pure hypercholesterolemia (ICD-10 - E78.00) Plan Of Treatment Medication Medication Name Sig Start Date Stop Date Notes Tamsulosin HCl 0.4 MG 1 capsule Orally O nce a day; Duration: 30 days Next Appt Details Follow Up: via phone to repo rt test results, Reason: Progress Notes * MASHA MEEHAN GDOB: [birth year] (89 yo F)Acc No.[id number]:06/21/2025 Progress Notes Patient: MASHA LABOY Provider: Jayla Dawn M.D. :1935 A ge:89 Y S ex:Female Date:06/21/2025 Address:[address] [place] [id number] Subjective: * Chief Complaints: * 1 . Blood in urine. * HPI: U rology: 89 year old female presents with c/o hematuria P t complains of blood in urine that started 06/11. Pt did go to er and was dx with kidney stone, see printed docs. * ROS: C ARDIOLOGY: no D izziness. n o C hest pain. D ERMATOLOGY: no R esa. n o H geronimo. G ASTROENTEROLOGY: no N ausea. n o V omiting. * Medical History: G laucoma, Overactive Bladder, Hyperlipidemia, Esophageal reflux, Migraine headache, Lumbar Disc Disease, Lumbar facet arthropathy, Spondylolisthesis, kidney stones, Dx: 2024. * Surgical History: T onsillectomy , Bladder [...] she drinks ocassinally. * Medications: T aking Avastin 400 MG/16ML Solution as directed Intravenous , Taking Tamsulosin HCl 0.4 MG Capsule 1 capsule Orally Once a day , Taking [place] Pass-3 1000 MG Capsule 1 cap(s) orally once a day , Discontinued Timolol Maleate 5 MG Tablet 1 tab(s) orally 2 times a day , Discontinued oxyBUTYnin Chloride ER 5 MG Tablet Extended Release 24 Hour 1 tab(s) orally once a day , Discontinued Diclofenac Sodium 1 % Gel 4 grams applied topically 4 times a day , Discontinued Omeprazole 20 MG Capsule Delayed Release 1 cap(s) orally once a day , Discontinued Nitrofurantoin Monohyd Macro 100 MG Capsule 1 capsule with food Orally every 12 hrs , Medication List reviewed and reconciled with the patient * Allergies: A zithromycin. Objective: * Vitals: W t: 112.8, Temp: 98.1, BP: 138/70, HR: 74, Nurse: MILADIS, Ht: 64, BMI:19.36. * Examination: G eneral Examination: General Appearance: N AD. H eart: R SR. L ungs:?clear to auscultation. A bdomen: b owel sounds present, soft and nontender. P eripheral pulses: n ormal (2+) bilaterally. B ack: n o CVA tenderness. E xtremities:?no leg edema. Assessment: * Assessment: 1. G ross hematuria - R31.0 (Primary) 2 . R ight ureteral stone - N20.1? 3. P ure hypercholesterolemia - E78.00 Plan: * Treatment: Value Reference Range C ulture, Urine See Below - * S pecimen Source Urine - Void - * Rosa Maria Seaman 06/23/2025 08:5 1:39 AM EDT > See phone encounter ?LAB: Urinalysis - Inhouse (Collection Date & Time - 06/21/2025)* Value Reference Range C olor/Clarity Red * L euk Neg * N itrite Neg * U robili 3.2 * P rotein 1+ * p H 6.5 * B lood 3+ * S p. Gr. 1.020 * K etone Neg * B erendira Neg * G shi Neg * Gisselle Logan 06/21/2025 10:08: 51 AM EDT > Provider reviewed results while patient in office. ?LAB: CBC Venipuncture (in house) (Collection Date & Time - 06/21/2025)* Value Reference Range w bc 6.9 3.5 - 10 * l ymph 14.7% 15 - 50 * m id 4.8% 2 - 15 * g ran 80.5% 35 - 80 * r bc 4.20 3.5 - 5.5 * h gb 13.1 11.5 - 16.5 * h ct 39.5 35 - 55 * m cv 94.0 75 - 100 * m ch 31.3 25 - 35 * m chc 33.3 31 - 38 * p latlet 486 100 - 400 * Melonie Alfonso 06/21/2025 10 :36:35 AM EDT > Rosa Maria Seaman 06/22/2025 08:35:56 AM EDT > See phone encounter ?Imaging: X ray : Abdomen- KUB (Performed Date - 06/21/2025)?nonspecific, nonobstructive bowel gas pattern* Rosa Maria Seaman 06/22/2025 08:3 5:56 AM EDT > See phone encounter 2.?Right ureteral stone? Refill Tamsulosin HCl Capsule, 0.4 MG, 1 capsule, Orally, Once a day, 30 days, 30 Capsule, Refills 0.?Imaging: X ray : Abdomen- KUB (Performed Date - 06/21/2025)?nonspecific, nonobstructive bowel gas pattern* Rosa Maria Seaman 06/22/2025 08:3 5:56 AM EDT > See phone encounter 3.?Pure hypercholesterolemia?LAB: P-Comprehensive Metabolic Panel (CMP) (Collection Date & Time - 06/21/2025 08:55 AM)?Normal* Value Reference Range A /G Ratio 1.7 1.1-2.5 - * A lbumin 4.0 3.5-5.3 - g/dL * A lkaline Phosphatase 115 35-121 - IU/L * A LT (SGPT) 14 <5-47 - IU/L * A ST (SGOT) 19 <5-40 - IU/L * B ilirubin, Total 0.5 <0.2-1.2 - mg/dL * B UN 17 8-23 - mg/dL * C alcium 9.9 8.6-10.4 - mg/dL * C hloride 102 97-108 - mmol/L * C O2 27 20-32 - mmol/L * C reatinine 0.89 0.50-1.00 - mg/dL * G lucose 94 65-99 - mg/dL * P otassium 4.4 3.5-5.3 - mmol/L * S odium 139 135-145 - mmol/L * P rotein 6.4 6.0-8.3 - g/dL * e GFR by Creatinine 62 >59 - mL/min/1.73m2 * Rosa Maria Seaman 06/22/2025 08:3 5:56 AM EDT > See phone encounter ?LAB: P-Lipid Panel (Collection Date & Time - 06/21/2025 08:55 AM)?Normal* Value Reference Range C holesterol / HDL Ratio 2.66 0.00-4.44 - Ratio * C holesterol 189 <200 - mg/dL * H DL Cholesterol 71 >39 - mg/dL * L DL Cholesterol (Calculation) 106 <130 - mg/d L * L DL/HDL Ratio 1.5 <3.3 - Ratio * N on-HDL Cholesterol 118 <130 - mg/dL * T riglycerides 60 <150 - mg/dL * Rosa Maria Seaman 06/22/2025 08:3 5:56 AM EDT > See phone encounter ?LAB: P-TSH reflex to FT4 (Collection Date & Time - 06/21/2025 08:55 AM)? Normal* Value Reference Range T SH reflex to FT4 4.46 0.43-5.25 - mU/L * Rosa Maria Seaman 06/22/2025 08:3 5:56 AM EDT > See phone encounter * Procedure Codes: G 2211 Complex e/[place], [address] Urinalysis, no micro, 60582 CBC WITH AUTO DIFF, 1036F TOBACCO NON-USER, G8783 BP SCR PRFRM RCMDD DEFIND SCR INTVL, G8752 MOST RECENT SYSTOLIC BP < 140MM HG, G8754 MOST RECENT DIASTOLIC BP < 90MM HG * Follow Up: v ia phone to report test results * Images: Billing Information: * Visit Code: 32188 Office Visit, Est Pt., Level 4. * Procedure Codes: G2211 Complex e/[place]. [address] Urinalysis, no micro. 40474 CBC WITH AUTO DIFF. 1036F TOBACCO NON-USER. G8783 BP SCR PRFRM RCMDD DEFIND SCR INTVL. G8752 MOST RECENT SYSTOLIC BP < 140MM HG. G8754 MOST RECENT DIASTOLIC BP < 90MM HG. * Electronic signature of Linda Dawn MD on 10/18/2025 at 11:06 PM EST Sign off status: Pending * Provider: Jayla Dawn M.D. Date: 0 06/21/2025 Generated for Chi rosales/Anita/Lesasmitting on: 1 12/19/2024 11:06 PM EST History and Physical Notes * HPI (History of Present Illness) Category Sub-Category Detail Notes Category Not es Urology hematuria Pt complains of blood in urine that started 06/11. Pt did go to er and was dx with kidney stone, see printed docs Examination Category Sub-Category Detail Notes Category Not es General Examination Heart: RSR Lungs: clear to auscultatio n Abdomen: bowel sounds present , soft and nontender Extremities: no leg edema General Appearance: NAD Peripheral pulses: normal (2+) bilatera lly Back: no CVA tenderness
--- NOTE | 2025-10-18 23:01 | CT_ITS ---
PROCEDURE INFORMATION: Exam: CT Cervical Spine Without Contrast Exam date and time: 10/18/2025 11:25 PM Age: 89 years old Clinical indication: Injury or trauma; Fall TECHNIQUE: Imaging protocol: Computed tomography of the cervical spine without contrast. Radiation optimization: All CT scans at this facility use at least one of these dose optimization techniques: automated exposure control; mA and/or kV adjustment per patient size (includes targeted exams where dose is matched to clinical indication); or iterative reconstruction. COMPARISON: CT HEAD/BRAIN WO CON 10/18/2025 11:23 PM FINDINGS: Bones: Minimal anterolisthesis of C4 on C5, C7 on T1, T1 on T2, T2 on T3, and T3 on T4. Minimal dextrocurvature of the cervical spine. The alignment is otherwise maintained. The vertebral body heights are maintained. No evidence of acute fractures. The bones are diffusely osteopenic. 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 There are mild to advanced degenerative changes of the facet joints and the uncovertebral joints, when the same degree of neural foraminal stenoses at multiple levels. Lungs: Mild biapical scarring is noted. Esophagus: Patulous upper esophagus with small amount of debris. Vasculature: There are atherosclerotic calcifications of the carotid bifurcations. There is a 5 mm perhaps cystic lesion in the right aspect of the larynx, (series 3, image 45), which is indeterminate. A nonemergent CT or perhaps better MRI of the neck are recommended for further evaluation. Clinical correlation and ENT consultation are recommended for further evaluation. Soft tissues: Artifacts from the dental amalgam limiting evaluation of the oral cavity. Scattered small cervical lymph nodes are nonspecific. IMPRESSION: 1. No evidence of acute fracture or traumatic malalignment in the cervical spine. 2. There is a 5 mm perhaps cystic lesion in the right aspect of the larynx, (series 3, image 45), which is indeterminate. A nonemergent CT of the neck or perhaps better MRI of the neck are recommended for further evaluation. Clinical correlation and ENT consultation are recommended for further evaluation.
--- NOTE | 2025-10-18 23:01 | XR_ITS ---
PROCEDURE INFORMATION: Exam: XR Chest Exam date and time: 10/18/2025 11:13 PM Age: 89 years old Clinical indication: Injury or trauma; Fall TECHNIQUE: Imaging protocol: Radiologic exam of the chest. Views: 1 view. COMPARISON: CR XR KUB 06/21/2025 10:25 AM FINDINGS: Lungs: There is a calcified granuloma within the right mid to lower lung zone. No consolidation. No mass. Pleural spaces: Unremarkable. No pleural effusion. No pneumothorax. Heart/Mediastinum: Unremarkable. No cardiomegaly. Vasculature: Unremarkable. Bones/joints: There is a scoliosis of the midthoracic spine convex right. There are prominent degenerative changes of both glenohumeral joints. IMPRESSION: No acute findings.
--- NOTE | 2025-10-18 23:01 | XR_ITS ---
PROCEDURE INFORMATION: Exam: XR Left Hip Exam date and time: 10/18/2025 11:13 PM Age: 89 years old Clinical indication: Hip pain; Left hip; Additional info: Fall shortening rotation L hip TECHNIQUE: Imaging protocol: Radiologic exam of the left hip. Views: 2 or 3 views hip with pelvis when performed. COMPARISON: CT ABDOMEN PELVIS W CON 06/11/2025 12:04 PM FINDINGS: Bones/joints: There is a comminuted left intertrochanteric fracture with varus deformity. The femoral head remains seated within the acetabulum. The bony pelvis and proximal left femur are intact. Soft tissues: Unremarkable. IMPRESSION: Comminuted left intratrochanteric fracture with varus deformity.
--- NOTE | 2025-10-18 23:01 | CT_ITS ---
PROCEDURE INFORMATION: Exam: CT Head Without Contrast Exam date and time: 10/18/2025 11:23 PM Age: 89 years old Clinical indication: Injury or trauma; Fall TECHNIQUE: Imaging protocol: Computed tomography of the head without contrast. Radiation optimization: All CT scans at this facility use at least one of these dose optimization techniques: automated exposure control; mA and/or kV adjustment per patient size (includes targeted exams where dose is matched to clinical indication); or iterative reconstruction. COMPARISON: No relevant prior studies available. FINDINGS: Limitations: The images are degraded due to motion artifacts. Artifacts from the dental amalgam are also limiting evaluation of the oral cavity and the posterior fossa. Within these limitations: Brain: No acute intra- or extra axial fluid collections are identified. The basal cisterns are patent. No mass effect or midline shift is seen. The khan-white matter differentiation is normal. Periventricular hypoattenuation are nonspecific but likely the sequela of chronic small vessel ischemic disease. Cerebral ventricles: Mild cerebral volume loss and ex vacuo dilation of the ventricles.. Paranasal sinuses: Minimal mucosal thickening in the ethmoid air cells. The remaining paranasal sinuses appear otherwise grossly clear. Mastoid air cells: The mastoid air cells appear grossly clear. Orbital cavities: The patient is status post cataract extraction.. Bones: No acute calvarial fracture is identified. Soft tissues: No soft tissue abnormalities identified. Vasculature: There are atherosclerotic calcifications of the carotid siphons and perhaps faintly the V4 segments of the vertebral arteries. IMPRESSION: Poor image quality due to motion and beam hardening/streak artifacts. Within these limitations: 1. No evidence of acute intracranial hemorrhage, mass effect, or midline shift. 2. Please note that CT is insensitive to nonhemorrhagic strokes and MRI of the brain should be considered, if there is clinical concern for acute cerebral infarction.
[2025-10-18 23:04] VITALS: BP 142/96; PULSE 82; O2SAT 97
--- NOTE | 2025-10-18 23:07 | HMH.EDGENADL ---
Discharge Plan Disposition Patient Disposition: Xfer Short-Term Hosp Condition: Fair Prescriptions Prescriptions: No Action cranberry fruit 400 mg capsule 400 mg PO DAILY cholecalciferol (vitamin D3) 1,000 unit capsule 1,000 unit PO DAILY Metamucil 3.4 gram/5.4 gram powder 1 tbsp PO DAILY Rx Instructions: mix into at least 8 oz of water or juice before administering tamsulosin 0.4 mg capsule 0.4 mg PO Q24H MDD 0.4 Qty: 14 0RF Rx Instructions: Take daily until passage of the stone Referrals Follow up/Referrals: Seth Dawn MD [Primary Care Provider, Medical] - See instructions Clinical Impressions Clinical Impression: Fall, Closed left hip fracture Print Language Print Language: [place] Discharge ED Provider: Clifford Foster General Adult HPI General Chief complaint: Fall Stated complaint: Fall, poss hip fracture Time Seen by Provider: 10/18/25 23:01 History of Present Illness HPI narrative: 89-year-old female with history of urolithiasis, lymphedema, arthritis presents to the ER after ground-level fall. Patient states she was packing to go away for the holidays when she lost her balance in the closet. She tried to step backwards but was not able to catch herself so she fell straight backwards. She struck her head on the wall behind her and fell to the ground landing on the left hip. EMS reports they found her on the ground in the same position in which she had fallen. She has obvious shortening and external rotation of the left leg. She has significant pain in the left hip. She does not take any blood thinners and states she did not lose consciousness. She is fully alert and oriented. She has a small knot on the back of her head according to EMS but has no other complaints or concerns. Patient initially told EMS she did not want any pain medications that could be sedating and was only okay with taking Demerol, but in conversation with me she stated she is okay with just being put to sleep and waking up after surgery. She would like to see Dr. Muñoz for her hip if possible. No medications prior to arrival. Patient reports to me she is willing to try morphine. Patient denies any headache, dizziness, numbness, tingling, or weakness. She denies neck pain, pain in the back or other extremities. Denies any chest pain, difficulty breathing, abdominal pain, nausea, vomiting, diarrhea, or other associated symptoms. Related Data Home Medications ?Medication ?Instructions ?Recorded ?Confirmed cholecalciferol (vitamin D3) 25 1,000 unit PO DAILY 01/19/19 06/20/25 mcg (1,000 unit) capsule cranberry fruit 400 mg capsule 400 mg PO DAILY 01/19/19 06/20/25 psyllium husk 3.4 gram/5.4 gram 1 tbsp PO DAILY 04/19/25 06/20/25 oral powder (Metamucil) Previous Rx's ?Medication ?Instructions ?Recorded tamsulosin 0.4 mg capsule 0.4 mg PO Q24H Kidney stone #14 06/11/25 caps Allergies Allergy/AdvReac Type Severity Reaction Status Date / Time azithromycin (AZITHROMYCIN) Allergy Unknown Hives Verified 06/20/25 13:10 [facility] Disclaimer: The information contained in this section may have been updated after the patient was seen, as this information can be updated by other users. Medical History Eczema Social History Smoking Status: Never smoker alcohol intake: never substance use type: denies use current occupational status: retired Travel in the last 8 weeks?: None Have you lived/traveled outside US in past 30 days?: No Contact w/someone who lives/traveled outside US past 30 days?: No Exposure to someone with infectious disease in past 14 days?: No Do you have a fever (greater than 100.4 F or 38 C)?: No Have you tested positive for COVID-19?: No Exposed to someone with COVID-19 in past 14 days?: No Do you have a sore throat?: No Do you have a cough?: No Do you have any weakness?: No Do you have any diarrhea?: No Are you experiencing any unusual bleeding?: No Do you have any muscle aches/pain?: No Do you have any abdominal pain?: No Are you experiencing loss of taste or smell?: No Other Medical History Have you received the Pneumonia Vaccine: Yes ROS Obtained: Yes Systems reviewed as appropriate & no additional complaints except as documented Per HPI Physical Exam General General appearance: alert and in no apparent distress Head Head exam: normocephalic and other (Small palpable hematoma at the posterior left parietal area) Eye Eye exam: Present PERRL and EOMI ENT ENT exam: Present mucous membranes moist Neck Neck exam: Present normal inspection and other (C-collar in place); Absent tenderness Chest Chest inspection: Present symmetric chest wall rise; Absent tenderness Respiratory Respiratory exam: Present normal lung sounds bilaterally; Absent respiratory distress, wheezes or stridor Cardiovascular Cardiovascular exam: Present regular rate and normal rhythm Abdominal Exam Abdominal exam: Present soft; Absent distention, tenderness, guarding or rebound Extremities Exam Extremities exam: Present tenderness (Significant tenderness left hip), normal capillary refill and other (Shortening and external rotation of the left lower extremity, neurovascularly intact distally); Absent full ROM (Limited range of motion left hip) or edema Back Exam Back exam: Absent tenderness Neurological Exam Neurological exam: Present alert and oriented X3; Absent motor sensory deficit Psychiatric Psychiatric exam: Present normal affect and normal mood Skin Skin exam: Present warm and dry Medical Decision Making Medical Records Medical records reviewed: Yes I reviewed the patient's medical records. Screening: Per USPSTF and CDC recommendations, given the prevalence of disease in our region, it is our hospital?s policy to screen for HIV and viral Hepatitis for all patients aged 18 and over and those with ongoing risk factors. Giuseppe Inquiry Pt receiving controlled substance: No Vital Signs: 10/18/25 23:04 10/18/25 23:08 10/18/25 23:16 Temperature 98.0 F Temperature Source Oral Pulse Rate 82 Pulse Rate [Left Radial] 72 Respiratory Rate 19 Blood Pressure 142/96 H Blood Pressure [Right Arm] 142/96 H Blood Pressure Mean 101 Blood Pressure Mean [Right Arm] 111 Blood Pressure Source [Right Arm] Automatic Cuff Blood Pressure Position [Right Arm] Supine 02 Sat by Pulse Oximetry 97 98 98 Oxygen Delivery Method Room Air Room Air 10/18/25 23:34 Temperature Temperature Source Pulse Rate 72 Pulse Rate [Left Radial] Respiratory Rate Blood Pressure 147/82 H Blood Pressure [Right Arm] Blood Pressure Mean 102 Blood Pressure Mean [Right Arm] Blood Pressure Source [Right Arm] Blood Pressure Position [Right Arm] 02 Sat by Pulse Oximetry 95 Oxygen Delivery Method Lab Data Lab Results 10/18/25 23:04: WBC 8.8, RBC 3.73 L, Hgb 11.9 L, Hct 36.0 L, MCV 96.5, MCH 31.9 H, MCHC 33.1, RDW 14.0, Plt Count 476 H, MPV 9.6, Neut % (Auto) 64.3, Lymph % (Auto) 25.4, Miller % (Auto) 6.8, Eos % (Auto) 1.7, Baso % (Auto) 0.9, Neut # (Auto) 5.6, Lymph # (Auto) 2.2, Miller # (Auto) 0.6, Eos # (Auto) 0.2, Baso # (Auto) 0.1, PT 11.5, INR 1.04, Sodium 138, Potassium 4.1, Chloride 102, Carbon Dioxide 31 H, Anion Gap 9.1, BUN 33 H, Creatinine 1.00, Estimated Creat Clear 30, Estimated GFR 52 L, Est GFR ( Amer) 63, Glucose 122 H, Calcium 9.7, Total Bilirubin 0.4, AST 37 H, ALT 40, Alkaline Phosphatase 149 H, Total Protein 7.1, Albumin 4.3, Globulin 2.8, Albumin/Globulin Ratio 1.5 10/18/25 23:04 10/18/25 23:04 Orders (Tests/Meds): ED MEDICATIONS Generic Name Dose Route Start Last Admin Trade Name Freq PRN Reason Stop Dose Admin Lactated Ringer's 1,000 mls @ 125 mls/hr 10/18/25 23:30 10/18/25 23:42 Lactated Ringer's 1000 Ml Bag IV 11/17/25 23:29 125 mls/hr .Q8H EVIE Administration Discontinued Medications Generic Name Dose Route Start Last Admin Trade Name Freq PRN Reason Stop Dose Admin Morphine Sulfate 2 mg 10/18/25 23:05 10/18/25 23:09 Morphine 2mg/Ml Syringe IV 10/18/25 23:06 2 mg ONCE ONE Administration Morphine Sulfate 2 mg 10/18/25 23:34 10/18/25 23:36 Morphine 2mg/Ml Syringe IV 10/18/25 23:35 2 mg ONCE ONE Administration Ondansetron HCl 4 mg 10/18/25 23:05 10/18/25 23:09 Ondansetron 4mg/2ml Vial IV 10/18/25 23:06 4 mg ONCE ONE Administration ORDERS Category Date Time Status CT bony pelvis Stat Cat Scan 10/18/25 23:[address] cervical spine wo con Stat Cat Scan 10/18/25 23:[address] head/brain wo con Stat Cat Scan 10/18/25 23:01 Completed CXR --portable [XR chest portable] Stat Exams 10/18/25 23:01 Completed XR hip LT 2-3V w/pelvis Stat Exams 10/18/25 23:01 Completed CBC w/Auto Diff [Complete Blood Count Auto Diff] Stat Lab 10/18/25 23:04 Completed CMP [Comprehensive Metabolic Panel] Stat Lab 10/18/25 23:04 Completed HIV Combo Stat Lab 10/18/25 23:15 Ordered Hepatitis C Ab Qual. W/ RFX Stat Lab 10/18/25 23:15 Ordered PT INR [Prothrombin Time INR] Stat Lab 10/18/25 23:04 Completed Medical Decision Narrative: In summary, this 89-year-old female with comorbidities described in the HPI presents to the emergency department today with left hip pain after ground-level fall. On initial evaluation patient is hemodynamically stable, afebrile, GCS 15, no neurologic deficits, c-collar in place. Airway intact, bilateral breath sounds present. Patient has obvious shortening and rotation of the left lower extremity, high suspicion for left hip fracture. Neurovascularly intact throughout including distal to the injury. No tenderness or findings of injury in the chest, abdomen, or back. There is a small scalp hematoma at the left posterior parietal area. No associated abrasion or laceration. No skull deformity or crepitus. Differential diagnosis includes but is not limited to hip fracture, dislocation, I also considered the possibility of intracranial bleed, skull fracture, with the presence of distracting injury cannot exclude the possibility of C-spine injury.. Based on these concerns, I ordered basic hematologic and serum labs, CT head, C-spine, chest and pelvis x-ray. I also ordered a pelvis CT due to very high suspicion of left hip fracture for further characterization of the injury.. Patient received morphine and Zofran for treatment of pain. She is tolerating this well at this time. No leukocytosis, mild anemia hemoglobin 11.9 nonactionable at this time. Thrombocythemia is nonactionable, PT/INR normal, CMP with prerenal azotemia, patient has lymphedema so I do not want to significantly volume overload her but she is being started on IV fluids especially since she will continue to be NPO. Chest and pelvis x-ray personally interpreted do not demonstrate acute intrathoracic abnormality, there is obvious fracture and deformity of the left hip. See radiology read for final interpretation. CT head personally interpreted demonstrates no intracranial bleed or skull fracture, CT C-spine without acute traumatic injury, CT bony pelvis demonstrates complex left hip fracture. See radiology reads for full interpretations. Incidental findings on the CT C-spine include possible cystic lesion of the right aspect of the larynx. Patient and family made aware of this and it will require outpatient follow-up. There are degenerative changes in the C-spine. C-collar cleared by me. I had a conversation with Dr. Du regarding this patient, unfortunately he is not currently on-call and will not be back until after the holidays. He recommended transfer to higher level of care for continued management. Patient and family would prefer that she go to [facility]. Images are being [employer] and we are reaching out to this facility for transfer request. Unfortunately [facility] has not bed space. I reached out to and spoke with Dr. Pastor. After reviewing this case, patient was graciously accepted for ED to ED transfer to [facility]. Patient and family agreeable to this. Patient was transferred in stable condition. Critical Care Critical Care Time Critical Care Time: No
--- OUTSIDE RECORDS SUMMARY | 2025-10-18 23:07 | XMS_ITS | Patient Health Record ---
Author Organization [facility] Address [address] [facility] [address] [place] [phone] Care Team Providers Care French Drawer Name Role Phone López Seth Primary Care Provider Allergies Allergen (clinical drug [...] Interpretation:Normal Performing Lab: Notes/Report: Test performed by [employer] , [address], [place] [address] Jd Benavides MD, Electrical Electronics Engineer CLIA: [id number] Sodium 139 135-145 mmol/L Potassium 4.4 3.5-5.3 [...] 08:51:43 AM Interpretation:No growth Performing Lab: Notes/Report: Test performed by [employer] [address] [place] [address] , [address], [place] [address] Jd Benavides MD, Electrical Electronics Engineer CLIA: [id number] Specimen Source Urine - Void Culture, Urine See Below Final Report : No growth P-Lipid Panel Reviewed date:06/22/2025 08:36:04 AM Interpretation:Normal Performing Lab: Notes/Report: Test performed by [employer] [address] [place] [address] , [address], [place] [address] Jd Benavides MD, Electrical Electronics Engineer CLIA: [id number] Cholesterol 189 <200 mg/dL Triglycerides 60 <150 [...] Interpretation:Normal Performing Lab: Notes/Report: Test performed by [employer] [address] [place], [place] [address] [address] [place] , [address], [place] [address] Jd Benavides MD, Electrical Electronics Engineer CLIA: [id number] TSH reflex to FT4 4.46 0.43-5.25 mU/L X ray : Abdomen- KUB Reviewed date:06/22/2025 08:36:04 AM Interpretation:nonspecific, nonobstructive bowel gas pattern Performing Lab: Notes/Report: nonspecific, nonobstructive bowel gas pattern Urinalysis - Inhouse Reviewed date:05/02/2025 05:03:24 PM Interpretation: Performing Lab: Notes/Report: Color/Clarity yellow/cloudy Leuk Neg Nitrite Neg Urobili 3.2 Protein Neg pH 6.5 Blood 3+ Sp. Gr. 1.010 Ketone Neg Bili Neg Gluc Neg P-Culture, Urine Reviewed date:05/09/2025 09:14:03 AM Interpretation:No growth Performing Lab: Notes/Report: Test performed by [employer] [address] [place], [place] [address] [address] , [address], [place] [address] Jd Benavides MD, Electrical Electronics Engineer CLIA: [id number] Specimen Source Urine - Void Culture, Urine See Below Final Report : No growth Reason For Referral No Information Medications Medication SIG (Take, Route, Fr equency, Duration) Notes Start Date End Date Status Avastin 400 MG/16ML as directed Intravenous Active [place]-3 1000 MG 1 cap(s) orally once a day; Duration: 30 day(s) Active Tamsulosin HCl 0.4 MG 1 capsule Orally O nce a day; Duration: 30 days Active Immunizations Vaccine Route Administration Date Status Comme nts xFluzone High Dose-private (65yr&older) Unknown 08/22/2017 Administered xFluzone High Dose-private (65yr&older) Unknown 08/10/2019 Administered Fluzone High Dose (65yr and older) Unknown 07/24/2020 A dministered Fluzone High Dose (65yr and older) Unknown 08/07/2021 A dministered Fluzone High Dose (65yr and older) Unknown 08/02/2022 A dministered COVID 19 Moderna Unknown 11/22/2020 Administered COVID 19 Moderna Unknown 12/20/2020 Administered COVID 19 Moderna Unknown 07/25/2021 Administered COVID 19 Moderna Unknown 03/05/2022 Administered Problems Problem Type SNOMED Code ICD Code Onset Dates Problem Status W/U Status Risk Notes Problem Overactive urinary bladder (disorder) (304488461) OAB (overactive bladder) (N32.81) Active confirmed Problem Pure hypercholesterolemia (170959465) Pure hypercholesterolemia (E78.00) Active confirmed Problem Gastroesophageal reflux disease (658364709) Gastroesophageal reflux disease, unspecified whether esophagitis present (K21.9) Active confirmed Vital Signs Heart Rate 74 /min 06/21/2025 Blood pressure diastolic 70 mm Hg 06/21/2025 Height 64 in 06/21/2025 Blood pressure systolic 138 mm Hg 06/21/2025 Weight 112.8 lbs 06/21/2025 BMI 19.36 kg/m2 06/21/2025 Encounters Encounter Location Date Provider Diagnosis [facility] [address] [id number] 05/02/2025 Seth [place] Gross hematuria R31. 0 and Body mass index [BMI] 19.9 or less, adult Z68.1 [facility] [address] [place] [id number] 06/21/2025 Seth [place] Gross hematuria R31. 0 ; Right ureteral stone N20.1 and Pure hypercholesterolemia E78.00 [facility] [address] [place] [id number] 06/22/2025 Sethlois Dawn Assessments Encounter Date Diagnosis (ICD Code) Assessment Notes Treatment Notes Treatment Clinical Notes Section Notes 06/21/2025 Right ureteral stone (ICD-10 - N20.1) 05/02/2025 Gross hematuria (ICD -10 - R31.0) 05/02/2025 Body mass index [BMI ] 19.9 or less, adult (ICD-10 - Z68.1) 06/21/2025 Gross hematuria (ICD -10 - R31.0) 06/21/2025 Pure hypercholesterolemia (ICD-10 - E78.00) 05/02/2025 Other Patient has lost 4 lbs in the past 20 months. No concern at this time. She will monitor weight and call with any new issues. Plan Of Treatment No Information Insurance Providers Payer Name Payer Address Payer Phone Subscriber Number Group Number Insured Name Patient Relationship to Insured Coverage Start Date Coverage End Date [employer] (MEDICAR E) [address] [address] [place] [address] [id number] MASHA MEEHAN Self - patient is the insured Medical (General) History Medical History History ICD Code Glaucoma Overactive Bladder Hyperlipidemia Esophageal reflux migraine headache Lumbar Disc Disease Lumbar facet arthropathy Spondylolisthesis kidney stones, Dx: 2024 Surgical History Surgery Date(Month/Year) Tonsillectomy Bladder Suspension Bladder Cyst Removal Glaucoma Hospitalization History Reason Date(Month/Year)
[2025-10-18 23:08] VITALS: BP 142/96; PULSE 72; RESP 19; TEMP 36.7; O2SAT 98; BMI 19.5
[2025-10-18] MEDS: MORPHINE 2MG/ML SYRINGE 2 MG IV ×2 (23:09→23:36)
[2025-10-18] MEDS: ONDANSETRON 4MG/2ML VIAL 4 MG IV (23:09)
[2025-10-18 23:14] LABS: Hematocrit 36.0 % (37.0-47.0); Hemoglobin 11.9 g/dL (12.2-16.2); Immature Granulocytes % 0.9 %; Mean Corpuscular HGB Conc 33.1 g/dL (31.8-35.4); Mean Corpuscular Hemoglobin 31.9 pg (27.0-31.2); Mean Corpuscular Volume 96.5 fl (81-99); Nucleated Red Blood Cells % 0 %; Platelet Count 476 K/mm3 (142-424); Red Blood Count 3.73 M/mm3 (4.20-5.40); Red Cell Distribution Width-SD 49.6 fL; White Blood Count 8.8 K/mm3 (4.8-10.8)
[2025-10-18 23:16] VITALS: O2SAT 98
--- NOTE | 2025-10-18 23:17 | CT_ITS ---
PROCEDURE INFORMATION: Exam: CT Pelvis Without Contrast, Skeleton Exam date and time: 10/18/2025 11:27 PM Age: 89 years old Clinical indication: Injury or trauma; Other: Fall left hip pain; Additional info: Fall, L hip FX TECHNIQUE: Imaging protocol: Computed tomography of the pelvis without contrast. Exam focused on the skeleton. Radiation optimization: All CT scans at this facility use at least one of these dose optimization techniques: automated exposure control; mA and/or kV adjustment per patient size (includes targeted exams where dose is matched to clinical indication); or iterative reconstruction. COMPARISON: CT ABDOMEN PELVIS W CON 06/11/2025 12:04 PM FINDINGS: Reproductive: Stable 23 mm left adnexal cyst. Calcified fibroid disease. Bones/joints: There is a comminuted intertrochanteric fracture of the proximal left femur with lesser and greater trochanteric components. Prominent varus deformity is noted at the fracture site. The femoral head remains seated within the acetabulum. No acute fracture of the distal femoral shaft, bony pelvis or proximal right femur. Severe degenerative change of lower lumbar spine. Soft tissues: Unremarkable. IMPRESSION: There is a 4 part intratrochanteric fracture of the left femur with varus deformity.
[2025-10-18 23:21] LABS: Alanine Aminotransferase 40 U/L (12-78); Albumin Level 4.3 g/dl (3.5-5.0); Albumin/Globulin Ratio 1.5 (1.1-1.8); Alkaline Phosphatase 149 U/L (38-126); Anion Gap 9.1 mEq/L (5-15); Aspartate Amino Transferase 37 U/L (14-36); Bilirubin,Total 0.4 mg/dl (0.2-1.3); Blood Urea Nitrogen 33 mg/dl (7-17); Calcium 9.7 mg/dl (8.4-10.2); Carbon Dioxide 31 mmol/L (22.0-30.0); Chloride 102 mmol/L (98-107); Creatinine Clearance Estimated 30 mL/min (50-200); Creatinine,Serum 1.00 mg/dl (0.52-1.04); Estimated Glomerular Filt Rate 52 ml/min (>60); GFR (African American) 63 ML/MIN (>60); Globulin 2.8 g/dL (1.3-3.2); Glucose 122 mg/dl (74-100); Potassium 4.1 mmoL/L (3.5-5.1); Sodium 138 mmol/L (136-145); Total Protein,Serum 7.1 g/dl (6.3-8.2)
[2025-10-18 23:25] LABS: INR 1.04 (0.9-1.1); Prothrombin Time 11.5 seconds (10.1-12.5)
[2025-10-18 23:34] VITALS: BP 147/82; PULSE 72; O2SAT 95
[2025-10-18] MEDS: LACTATED RINGERS 1000ML 1,000 ML 125 ML IV (23:42)
[2025-10-18 23:45] VITALS: PULSE 86; O2SAT 96
[2025-10-19] VITALS: BP 146/80
[2025-10-19 00:15] VITALS: PULSE 90; O2SAT 96
--- NOTE | 2025-10-19 00:15 | PC.NURSE ---
Call made to [facility] for patient transfer, facility informed myself that they were on a admit waitlist at this time. Dr. Foster informed to reach out to for transfer. Spoke with transfer center, Dr. Foster speaking with Dr. Enrique at this time.
[2025-10-19 00:29] VITALS: PULSE 88; O2SAT 96
[2025-10-19 00:30] VITALS: BP 142/88
[2025-10-19] MEDS: MORPHINE 2MG/ML SYRINGE 2 MG IV (00:44)
[2025-10-19 00:50] VITALS: BP 142/88; PULSE 88; RESP 16; TEMP 36.7; O2SAT 98
[2025-10-19 01:44] LABS: Hepatitis C Ab Qual. W/ RFX NEGATIVE (Negative)
== END 2025-10-19 00:55 | disposition short-term general hospital (02) ==
PROVIDERS: Emergency Provider Emergency Medicine; PCP Family Medicine
DX: S72.142A Displaced intertrochanteric fracture of left femur, initial encounter for closed fracture (principal); W18.39XA Other fall on same level, initial encounter
CPT/HCPCS: 70450; 71045; 72125; 72192; 73502; 80053; 85025; 85610; 86803; 87389; 96361; 96374; 96375; 96376; 99285; J2270; J2405; J7120